=== PATIENT | female | born 1950 | race Caucasian/White ===

== ENCOUNTER 2020-07-10 10:06 | Outpatient (REF) | payer MEDICARE, SELFPAY | END 2020-07-10 10:07 | disposition home or self-care (01) | LOC: HO.LAB 10:06 | PROVIDERS: PCP Internal Medicine; Visit Provider Internal Medicine | DX: Z20.828 Contact with and (suspected) exposure to other viral communicable diseases (principal) | CPT/HCPCS: C9803; U0003 ==

== ENCOUNTER 2021-04-07 17:29 | Emergency (ER) | payer MEDICARE, SELFPAY ==
--- NOTE | ~2021-04-07 | XR_ITS ---
EXAMINATION: XR CHEST CLINICAL INFORMATION: Cough and wheezing COMPARISON: None TECHNIQUE: 2 views of the chest were obtained. FINDINGS: No significant abnormality is noted involving the heart, lungs, mediastinum, bony thorax or soft tissues. Surgical clips noted in the gallbladder fossa. XR/XR chest 2V IMPRESSION: Unremarkable examination.
[2021-04-07 19:48] VITALS: BP 150/78; PULSE 87; RESP 18; TEMP 36.9; O2SAT 95; BMI 31.6
--- NOTE | 2021-04-07 20:39 | ED_ITS ---
HPI - URI/Sore Throat General Chief Complaint: Upper Respiratory Symptoms Stated Complaint: flu like Time Seen by Provider: 04/07/21 20:39 Source: patient Mode of arrival: ambulatory Limitations: no limitations History of Present Illness HPI Narrative: 70-year-old female with a past medical history of COVID in June of 2020. Patient reports similar symptoms month ago with cough. Today patient denies any SOB, CP, PND, palpitations. Reports that she had those symptoms for the last week. Patient reports that those symptoms are worse at night when she lays down. Denies any rhinitis or postnasal drip. Denies any allergies. Denies any fever or chills. Patient denies any other symptoms Related Data Previous Rx's Medication Instructions Recorded benzonatate 100 mg capsule 100 mg PO TID PRN #30 cap 04/07/21 (Tessalon Miriam) fluticasone propionate 50 1 spray INTRANASAL BID #16 g 04/07/21 mcg/actuation nasal spray,suspension (Flonase Allergy Relief) prednisone 20 mg tablet 60 mg PO DAILY 5 Days #15 tab 04/07/21 Allergies Allergy/AdvReac Type Severity Reaction Status Date / Time codeine Allergy Unknown Verified 04/07/21 19:50 Review of Systems Review of Systems: Constitutional : No Weight loss, No Fever, No Chills, No Night Sweats, No Fatigue, No Malaise ENT/Mouth : No Hearing loss, No Ear Pain, No Nasal Congestion, No Sinus Pain, No Hoarseness, No sore throat, No Rhinorrhea, No Swallowing Difficulty Eyes: No Eye Pain, No Swelling, No Redness, No Foreign Body, No Discharge, No Vision Changes Cardiovascular : No Chest Pain, No SOB, No Dyspnea on Exertion, No Orthopnea, No Edema, No Palpitations Respiratory : Cough, No Sputum, No Wheezing, No Smoke Exposure, No Dyspnea Gastrointestinal : No Nausea, No Vomiting, No Diarrhea, No Constipation, No abdominal Pain, No Hematochezia, No Melena Genitourinary : no irregular bleeding, No Dysuria, No Urinary Frequency, No Hematuria, No Urinary Incontinence, No Urgency, No Flank Pain, No Urinary Flow Changes, No Hesitancy Musculoskeletal : No joint pain, No Myalgias, No Joint Swelling Skin : No Skin Lesions, No rash Neuro : No Weakness, No Numbness, No Paresthesias, No Loss of Consciousness, No Dizziness, No Headache Psych : No Anxiety/Panic, No Depression, No SI/HI/AH/VH, No Social Issues, Heme/Lymph: No Bruising, No Bleeding,No Lymphadenopathy Endocrine : No Polyuria, No Polydipsia, No Temperature Intolerance Yes all oth er systems are reviewed and are negative PMFSH Social History Social History Advance Directives: No Physical Exam Vital Signs: Vital Signs: Last Vital Signs Temp 98.4 F 04/07/21 19:48 Pulse 87 04/07/21 19:48 Resp 18 04/07/21 19:48 BP 150/78 H 04/07/21 19:48 Pulse Ox 95 04/07/21 19:48 Body Mass Index 31.6 Const: General: healthy appearing, no acute distress and well developed Nutritional Appearance: well nourished Orientation/consciousness: patient oriented x3 Neck: Neck: Yes normal visual inspection, Yes full ROM and Yes trachea midline Thyroid: Thyroid normal Resp: Effort & Inspection: normal respiratory effort and able to speak in complete sentences Auscultation: clear to auscultation bilaterally Cardio: Rate: regular rate Rhythm: regular rhythm GI: Inspection: Yes normal to inspection and No distended Palpation (GI): No hepatosplenomegaly present Auscultation: normal bowel sounds Skin: General skin exam: elasticity normal, turgor normal and dry skin Neuro: General: patient oriented x3 Course Course Course Narrative: 70-year-old female is here today for cough the last few days. Patient reports that she had similar symptoms 1 month ago in her symptoms went away. Patient reports that she had COVID in June 2020, reports that she had been vaccinated since. Patient denies any rhinitis ear pain, SOB with or without exertion, palpitations, CP, PND. Will give her prednisone and Tessalon Perles, will do COVID test. Reevaluation(s) Reevaluation #1: Patient negative for COVID, SARS, flu, RSV. Will send her home on prednisone and Tessalon Perles. I will also send her home with Flonase. She can take it twice a day. Patient was instructed to go to see her PCP in 2-3 days. She was also instructed to return to emergency department if her symptoms will get worse or if she will experience any additional concerning symptoms. MDM - URI/Sore Throat Differential Diagnosis Differential diagnosis: Likely upper respiratory infection, viral infection and bronchitis Lab Data Labs: Lab Results 04/07/21 Range/Units 21:03 Coronavirus (PCR) NEGATIVE (Negative) Influenza Type A (PCR) NEGATIVE (Negative) Influenza Type B (PCR) NEGATIVE (Negative) RSV RNA Qual (PCR) NEGATIVE (Negative) Imaging Data Chest x-ray: Radiologist's impression: FINDINGS: No significant abnormality is noted involving the heart, lungs, mediastinum, bony thorax or soft tissues. Surgical clips noted in the gallbladder fossa. Discharge Plan Discharge Clinical Impression: Upper respiratory infection Patient Disposition: Home, Self-Care Instructions: Upper Respiratory Infection (ED), Viral Syndrome (ED) Additional Instructions: You were seen here today for upper respiratory infection. Your COVID 19 test is still pending and we will call you when it is back and is positive. You were given prednisone so please take that for the next 5 days. You were given cough medication as well. Please follow-up with your primary care doctor in 2-3 days. He you may return to emergency department if your symptoms will get worse or if you experience any additional concerning symptoms Prescriptions: New benzonatate [Tessalon Perles] 100 mg capsule 100 mg PO TID PRN (Reason: cough) Qty: 30 RF: 0 prednisone 20 mg tablet 60 mg PO DAILY 5 Days Qty: 15 RF: 0 fluticasone propionate [Flonase Allergy Relief] 50 mcg/actuation spray,suspension 1 spray intranasal BID Qty: 16 RF: 0 Referrals: Macario Jansen PA [Primary Care Provider] - 2 days Interventions: ED Discharge Assessment Last Done: 04/07/21 22:19 Discharge Date/Time: 04/07/21 22:20
[2021-04-07] MEDS: predniSONE 20 MG TABLET 60 MG PO (21:00)
[2021-04-07 21:48] LABS: Influenza A PCR NEGATIVE (Negative); Influenza B PCR NEGATIVE (Negative); Resp Syncy Virus RNA Qual PCR NEGATIVE (Negative); SARS COV2 PCR INHOUSE NEGATIVE (Negative)
[2021-04-07] MEDS: Benzonatate 100 MG CAPSULE PO (22:04)
== END 2021-04-07 22:20 | disposition home or self-care (01) ==
PROVIDERS: Nurse Practitioner Family; Emergency Provider Emergency Medicine Emergency Medical Services; PCP Physician Assistant Medical
DX: J06.9 Acute upper respiratory infection, unspecified (principal); Z20.822 Contact with and (suspected) exposure to COVID-19
CPT/HCPCS: 0241U; 36415; 71046; 99283

== ENCOUNTER 2021-04-17 14:42 | Emergency (ER) | payer MEDICARE, SELFPAY ==
--- NOTE | ~2021-04-17 | XR_ITS ---
EXAMINATION: XR CHEST CLINICAL INFORMATION: Cough for one month COMPARISON: April 07, 2021 TECHNIQUE: AP portable view of the chest was obtained. FINDINGS: There is no evidence of acute parenchymal disease, pneumothorax, or pleural effusion. Heart normal size. No evidence of pulmonary edema. There is a small retrocardiac density present consistent with hiatal hernia. There is a region of scarring noted about the right apex. XR/XR chest 1V IMPRESSION: No acute disease.
[2021-04-17 15:26] VITALS: BP 158/60; PULSE 79; RESP 16; TEMP 36.3; O2SAT 99; BMI 31.7
--- NOTE | 2021-04-17 16:00 | ECG_ITS ---
Test Reason : DYSPNEA Blood Pressure : / mmHG Vent. Rate : 070 BPM Atrial Rate : 070 BPM P-R Int : 146 ms QRS Dur : 076 ms QT Int : 394 ms P-R-T Axes : 000 030 043 degrees QTc Int : 425 ms Normal sinus rhythm Normal ECG No previous ECGs available Referred By: Hansel Crespo Electronically Signed By:DONNA BARTHOLOMEW
--- NOTE | 2021-04-17 16:23 | ED.GENADULT ---
HPI - General Adult General Chief complaint: Dyspnea Stated complaint: cough Time Seen by Provider: 04/17/21 15:05 Source: patient Mode of arrival: ambulatory Limitations: no limitations History of Present Illness HPI narrative: Patient presents to ED for chronic cough for 1 month. Patient denies any chest pain or shortness of breath. Patient states no swelling of lower extremities, shortness of breath on exertion, calf pain, pleuritic chest plain, headache, recent surgery, recent travel, pmh of blood clots, or dizziness. Patient denies any history of diabetes hypertension. Patient denies any hypertensive medication. Patient denies any swelling of lip or sensation of throat closing. Patient denies any itchy rash. Patient states past medical history of COVID. Related Data Previous Rx's Medication Instructions Recorded benzonatate 100 mg capsule 100 mg PO TID PRN #30 cap 04/07/21 (Tessalon Perles) fluticasone propionate 50 1 spray INTRANASAL BID #16 g 04/07/21 mcg/actuation nasal spray,suspension (Flonase Allergy Relief) prednisone 20 mg tablet 60 mg PO DAILY 5 Days #15 tab 04/07/21 codeine 10 mg-guaifenesin 100 mg/5 5 ml PO Q6H PRN 3 Days #60 ml 04/17/21 mL oral liquid (Guaifenesin AC) Allergies Allergy/AdvReac Type Severity Reaction Status Date / Time codeine Allergy Unknown Verified 04/07/21 19:50 Review of Systems Constitutional: Constitutional: Reports as per HPI and Reports no additional constitutional complaints Eyes: Eyes: Reports as per HPI and Reports no additional eye complaints ENT: Reports system reviewed and no additional complaints, except as documented and Reports as per HPI Cardiovascular: Cardiovascular: Reports as per HPI and Reports no additional cardiovascular complaints Respiratory: Respiratory: Reports as per HPI, Reports no additional respiratory complaints and Reports cough Gastrointestinal: Gastrointestinal: Reports as per HPI and Reports no additional gastrointestinal complaints Genitourinary: Genitourinary: Reports no additional female genitourinary complaints and Reports as per HPI Musculoskeletal: Musculoskeletal: Reports no additional musculoskeletal complaints and Reports as per HPI Neurologic: Reports system reviewed and no additional complaints, except as documented and Reports as per HPI Psychiatric: Psychiatric: Reports no additional psychiatric complaints and Reports as per HPI [facility] Social History Social History Advance Directives: Yes Advance Directives Information Provided: No Advance Directives on File: No Physical Exam Vital Signs: Vital Signs: Last Vital Signs Temp 98.1 F 04/17/21 19:33 Pulse 69 04/17/21 19:33 Resp 16 04/17/21 19:33 BP 151/70 H 04/17/21 19:33 Pulse Ox 97 04/17/21 19:33 Body Mass Index 31.7 Const: General: cooperative and healthy appearing Orientation/consciousness: patient oriented x3 HENMT: Head: Yes normal to inspection, Yes No palpable skull fracture present, Yes normocephalic and Yes atraumatic Eyes: General: appearance normal, both eyes and all related structures Neck: Neck: Yes normal visual inspection, Yes full ROM, Yes no lymphadenopathy, Yes no meningeal signs, Yes trachea midline, Yes supple and No tender Chest: Chest palpation & inspection: normal inspection of the chest and normal palpation of entire chest wall Resp: Effort & Inspection: normal respiratory effort and able to speak in complete sentences Auscultation: clear to auscultation bilaterally Cardio: Jugular venous distension: no JVD Heart sounds: S1 normal heart sound present and S2 normal heart sound present GI: Inspection: Yes normal to inspection and No abdominal wall ecchymosis Palpation (GI): Soft to palpation, not firm, nontender, no guarding and not rigid : General: No CVA tenderness and Yes no CVA tenderness Back/Spine/Pelvis: Back: no CVA tenderness, No CVA tenderness and No back tenderness Skin: General skin exam: no rashes or lesions noted and elasticity normal Neuro: General: patient oriented x3, gait normal, no meningeal signs and CN's II-XI intact bilaterally Cranial nerves: Yes CN's II-XII intact bilaterally Extrem: Other: Lower extremities negative for swelling, pitting edema, calf tenderness General: Yes normal to inspection and Yes full ROM Psych: Appearance: grossly normal, well kempt and not disheveled Course Course Course Narrative: History physical exam and is more URI chronic cough but due to age and chronicity cough to make sure there is no cardiac issues such as CA or BNP. If negative will refer to pathology lab technician for chronic cough and probably be due to moan lasting effect from COVID. Reevaluation(s) Reevaluation #1: Patient's 2 troponins were negative. EKG negative STEMI. BNP negative. Patient's COVID swab negative. Patient owns be negative. Patient will be referred to pathology lab technician for chronic cough. Time: 19:38 Medical Decision Making MDM Narrative Medical decision making narrative: Chronic cough Lab Data Result diagrams: 04/17/21 16:23 04/17/21 16:23 Labs: Lab Results 04/17/21 04/17/21 04/17/21 Range/Units 16:23 16:23 16:23 WBC 15.9 H (4.8-10.8) X10*3/uL RBC 4.30 (4.20-5.50) X10*6/uL Hgb 12.6 (12.0-16.0) g/dl Hct 39.1 (37-47) % MCV 90.9 (80-98) fL MCH 29.3 (27.0-33.0) pg MCHC 32.2 (31.0-35.0) g/dl RDW 13.2 (11.0-16.0) % Plt Count 314 (160-400) X10*3/uL MPV 10.2 (9.4-12.3) fL Immature Gran % (Auto) 0.5 H (0.0-0.4) % Neut % (Auto) 70.5 (45-73) % Lymph % (Auto) 18.3 L (20-40) % [place] % (Auto) 6.8 (2-11) % Eos % (Auto) 3.6 (0-4) % Baso % (Auto) 0.3 (0-2) % Lymph # (Auto) 2.9 (1.2-4.9) X10*3/uL [place] # (Auto) 1.1 (0.1-1.2) X10*3/uL Eos # (Auto) 0.6 H (0.0-0.4) X10*3/uL Baso # (Auto) 0.1 (0.0-0.2) X10*3/uL Abs Immat Gran (auto) 0.08 H (0.00-0.03) X10*3/uL Absolute Neuts (auto) 11.2 H (2.0-8.3) X10*3/uL Absolute Nucleated RBC 0.000 (0.0-0.012) X10*3/uL Nucleated RBC % (auto) 0.0 (0.0-0.2) /100WBC Sodium 142 (135-145) mmol/L Potassium 4.5 (3.3-5.1) mmol/L Chloride 108 (96-108) mmol/L Carbon Dioxide 26 (22-29) mmol/L Anion Gap 13 (12-20) BUN 19 H (9-16) mg/dL Creatinine 0.94 (0.5-1.4) mg/dL Estim Creat Clear Calc 45.1 Estimated GFR 59 Random Glucose 102 (60-115) mg/dL Calcium 9.9 (8.4-10.2) mg/dL Total Bilirubin 0.5 (0.0-1.0) mg/dL AST 19 (5-31) U/L ALT 37 H (0-31) U/L Alkaline Phosphatase 76 (39-117) U/L Troponin I High Sens 6.7 (<3.5-17.0) ng/L B-Natriuretic Peptide 25 (<100) pg/mL Total Protein 6.6 (6.5-8.0) g/dL Albumin 4.5 (3.5-5.0) g/dL Coronavirus (PCR) (Negative) Influenza Type A (PCR) (Negative) Influenza Type B (PCR) (Negative) RSV RNA Qual (PCR) (Negative) 04/17/21 04/17/21 Range/Units 16:51 18:16 WBC (4.8-10.8) X10*3/uL RBC (4.20-5.50) X10*6/uL Hgb (12.0-16.0) g/dl Hct (37-47) % MCV (80-98) fL MCH (27.0-33.0) pg MCHC (31.0-35.0) g/dl RDW (11.0-16.0) % Plt Count (160-400) X10*3/uL MPV (9.4-12.3) fL Immature Gran % (Auto) (0.0-0.4) % Neut % (Auto) (45-73) % Lymph % (Auto) (20-40) % [place] % (Auto) (2-11) % Eos % (Auto) (0-4) % Baso % (Auto) (0-2) % Lymph # (Auto) (1.2-4.9) X10*3/uL [place] # (Auto) (0.1-1.2) X10*3/uL Eos # (Auto) (0.0-0.4) X10*3/uL Baso # (Auto) (0.0-0.2) X10*3/uL Abs Immat Gran (auto) (0.00-0.03) X10*3/uL Absolute Neuts (auto) (2.0-8.3) X10*3/uL Absolute Nucleated RBC (0.0-0.012) X10*3/uL Nucleated RBC % (auto) (0.0-0.2) /100WBC Sodium (135-145) mmol/L Potassium (3.3-5.1) mmol/L Chloride (96-108) mmol/L Carbon Dioxide (22-29) mmol/L Anion Gap (12-20) BUN (9-16) mg/dL Creatinine (0.5-1.4) mg/dL Estim Creat Clear Calc Estimated GFR Random Glucose (60-115) mg/dL Calcium (8.4-10.2) mg/dL Total Bilirubin (0.0-1.0) mg/dL AST (5-31) U/L ALT (0-31) U/L Alkaline Phosphatase (39-117) U/L Troponin I High Sens 7.7 (<3.5-17.0) ng/L B-Natriuretic Peptide (<100) pg/mL Total Protein (6.5-8.0) g/dL Albumin (3.5-5.0) g/dL Coronavirus (PCR) NEGATIVE (Negative) Influenza Type A (PCR) NEGATIVE (Negative) Influenza Type B (PCR) NEGATIVE (Negative) RSV RNA Qual (PCR) NEGATIVE (Negative) ECG Data Interpretation: Normal sinus rhythm. Normal EKG ventricular rate 70. Pr interval 146. QRS 76 QTC 425. Negative STEMI Discharge Plan Discharge Clinical Impression: Chronic cough Patient Disposition: Home, Self-Care Instructions: Chronic Cough (ED) Additional Instructions: You will be discharged with Hycodan which is a cough medication with narcotic. Use as needed only. Side-effect of medication is drowsiness. Do not take at work or while driving. follow-up with referred pathology lab technician for chronic cough. Your blood work and chest x-ray came back negative for heart attack or heart failure. Chest x-ray negative for pneumonia. COVID swab came back negative. Return to the ED for worsening chest pain, shortness of breath, weakness, dizziness, leg swelling, calf pain, intractable fever, chills, or any other concerning symptoms. Prescriptions: New codeine-guaifenesin [Guaifenesin AC] 10-100 mg/5 mL liquid 5 ml PO Q6H PRN (Reason: coughing) 3 Days Qty: 60 RF: 0 No Action benzonatate [Tessalon Perles] 100 mg capsule 100 mg PO TID PRN (Reason: cough) Qty: 30 RF: 0 prednisone 20 mg tablet 60 mg PO DAILY 5 Days Qty: 15 RF: 0 fluticasone propionate [Flonase Allergy Relief] 50 mcg/actuation spray,suspension 1 spray intranasal BID Qty: 16 RF: 0 Referrals: Joey Gomez MD [Physician] - 2 days (Chronic cough for one month) Interventions: ED Discharge Assessment Last Done: 04/17/21 20:34 Discharge Date/Time: 04/17/21 20:35 Print Language: Sami
[2021-04-17 16:32] LABS: MANUAL DIFF FLAG NO
[2021-04-17 16:34] LABS: Basophils Absolute Auto 0.1 X10*3/uL (0.0-0.2); Basophils Percent Auto 0.3 % (0-2); Eosinophils Absolute Auto 0.6 X10*3/uL (0.0-0.4); Eosinophils Percent Auto 3.6 % (0-4); Hematocrit 39.1 % (37-47); Hemoglobin 12.6 g/dl (12.0-16.0); Imm Gran Abs Auto 0.08 X10*3/uL (0.00-0.03); Imm Gran Pct Auto 0.5 % (0.0-0.4); Lymphocytes Absolute Auto 2.9 X10*3/uL (1.2-4.9); Lymphocytes Percent Auto 18.3 % (20-40); Mean Corpuscular HGB Conc 32.2 g/dl (31.0-35.0); Mean Corpuscular Hemoglobin 29.3 pg (27.0-33.0); Mean Corpuscular Volume 90.9 fL (80-98); Mean Platelet Volume 10.2 fL (9.4-12.3); Monocytes Absolute Auto 1.1 X10*3/uL (0.1-1.2); Monocytes Percent Auto 6.8 % (2-11); Neutrophils Absolute Auto 11.2 X10*3/uL (2.0-8.3); Neutrophils Percent Auto 70.5 % (45-73); Platelet Count 314 X10*3/uL (160-400); Red Cell Distribution Width 13.2 % (11.0-16.0); White Blood Count 15.9 X10*3/uL (4.8-10.8)
[2021-04-17 16:53] LABS: Alanine Aminotransferase 37 U/L (0-31); Albumin Level 4.5 g/dL (3.5-5.0); Alkaline Phosphatase 76 U/L (39-117); Anion Gap 13 (12-20); Aspartate Amino Transferase 19 U/L (5-31); Bilirubin Total 0.5 mg/dL (0.0-1.0); Blood Urea Nitrogen 19 mg/dL (9-16); Calcium 9.9 mg/dL (8.4-10.2); Carbon Dioxide 26 mmol/L (22-29); Chloride 108 mmol/L (96-108); Creatinine Clr Calc Pharmacy 45.1; Estimated Glomerular Filt Rate 59; Glucose Random 102 mg/dL (60-115); Potassium 4.5 mmol/L (3.3-5.1); Sodium 142 mmol/L (135-145); Total Protein 6.6 g/dL (6.5-8.0)
[2021-04-17 16:58] LABS: B Type Natriuretic Peptide 25 pg/mL (<100); Troponin-I High Sensitivity 6.7 ng/L (<3.5-17.0)
[2021-04-17 17:28] LABS: Adenovirus PCR Not Detected (Not Detect.); Bordetella parapertussis PCR Not Detected (Not Detect.); Bordetella pertussis PCR Not Detected (Not Detect.); Chlamydia pneumoniae PCR Not Detected (Not Detect.); Coronavirus 229E PCR Not Detected (Not Detect.); Coronavirus HKU1 PCR Not Detected (Not Detect.); Coronavirus NL63 PCR Not Detected (Not Detect.); Coronavirus OC43 PCR Not Detected (Not Detect.); Human metapneumovirus PCR Not Detected (Not Detect.); Influenza A PCR Not Detected (Not Detect.); Influenza B PCR Not Detected (Not Detect.); Mycoplasma pneumoniae PCR Not Detected (Not Detect.); Parainfluenza 1 PCR Not Detected (Not Detect.); Parainfluenza 2 PCR Not Detected (Not Detect.); Parainfluenza 3 PCR Not Detected (Not Detect.); Parainfluenza 4 PCR Not Detected (Not Detect.); RSV PCR Not Detected (Not Detect.); Rhino/Enterovirus PCR Not Detected (Not Detect.); SARS-CoV-2 PCR Not Detected (Not Detect.)
[2021-04-17 17:36] LABS: Influenza A PCR NEGATIVE (Negative); Influenza B PCR NEGATIVE (Negative); Resp Syncy Virus RNA Qual PCR NEGATIVE (Negative); SARS COV2 PCR INHOUSE NEGATIVE (Negative)
[2021-04-17 18:42] LABS: Troponin-I High Sensitivity 7.7 ng/L (<3.5-17.0)
[2021-04-17] MEDS: guaiFEN/Codeine SF 200/20/10ML 10 ML LIQUID PO (19:10)
[2021-04-17 19:33] VITALS: BP 151/70; PULSE 69; RESP 16; TEMP 36.7; O2SAT 97
== END 2021-04-17 20:35 | disposition home or self-care (01) ==
PROVIDERS: Emergency Medicine; Physician Assistant; Emergency Provider Emergency Medicine Emergency Medical Services; PCP Physician Assistant Medical
DX: R05 Cough (principal); Z79.899 Other long term (current) drug therapy; Z20.822 Contact with and (suspected) exposure to COVID-19
CPT/HCPCS: 0241U; 36415; 71045; 80053; 83880; 84484; 85025; 87633; 93005; 99283

== ENCOUNTER 2021-05-23 09:58 | Outpatient (REF) | payer MEDICARE, SELFPAY ==
[2021-05-23 11:18] LABS: MANUAL DIFF FLAG NO
[2021-05-23 11:51] LABS: Basophils Absolute Auto 0.1 X10*3/uL (0.0-0.2); Eosinophils Absolute Auto 0.4 X10*3/uL (0.0-0.4); Eosinophils Percent Auto 4.9 % (0-4); Hematocrit 39.2 % (37-47); Hemoglobin 12.4 g/dl (12.0-16.0); Imm Gran Abs Auto 0.03 X10*3/uL (0.00-0.03); Imm Gran Pct Auto 0.4 % (0.0-0.4); Lymphocytes Absolute Auto 2.5 X10*3/uL (1.2-4.9); Lymphocytes Percent Auto 30.4 % (20-40); Mean Corpuscular HGB Conc 31.6 g/dl (31.0-35.0); Mean Corpuscular Hemoglobin 29.3 pg (27.0-33.0); Mean Corpuscular Volume 92.7 fL (80-98); Mean Platelet Volume 10.8 fL (9.4-12.3); Monocytes Absolute Auto 0.8 X10*3/uL (0.1-1.2); Monocytes Percent Auto 9.1 % (2-11); Neutrophils Absolute Auto 4.5 X10*3/uL (2.0-8.3); Neutrophils Percent Auto 54.2 % (45-73); Platelet Count 358 X10*3/uL (160-400); Red Blood Count 4.23 X10*6/uL (4.20-5.50); Red Cell Distribution Width 13.8 % (11.0-16.0); White Blood Count 8.3 X10*3/uL (4.8-10.8)
[2021-05-23 12:23] LABS: Anion Gap 18 (12-20); Blood Urea Nitrogen 18 mg/dL (9-16); Carbon Dioxide 21 mmol/L (22-29); Chloride 105 mmol/L (96-108); Estimated Glomerular Filt Rate > 60; Glucose Random 98 mg/dL (60-115); Potassium 4.5 mmol/L (3.3-5.1); Sodium 139 mmol/L (135-145)
[2021-05-23 12:51] LABS: Erythrocyte Sedimentation Rate 16 MM/HR (0-20)
[2021-05-24 13:26] LABS: Anti Nuclear Antibody Screen NEGATIVE (NEGATIVE)
[2021-05-24 13:40] LABS: IgA 166 mg/dL (70-320); IgG 543 mg/dL (600-1540); IgM 54 mg/dL (50-300)
[2021-05-24 19:16] LABS: Immunoglobulin G Subclass 1 274 mg/dL (382-929); Immunoglobulin G Subclass 2 180 mg/dL (241-700); Immunoglobulin G Subclass 3 43 mg/dL (22-178); Immunoglobulin G Subclass 4 11.4 mg/dL (4-86); Immunoglobulin G Total 517 mg/dL (600-1540)
== END 2021-05-23 09:59 | disposition home or self-care (01) ==
LOC: HO.LAB 09:58
PROVIDERS: PCP Physician Assistant Medical; Visit Provider Hospitalist
DX: J45.40 Moderate persistent asthma, uncomplicated (principal); J40 Bronchitis, not specified as acute or chronic; K44.9 Diaphragmatic hernia without obstruction or gangrene
CPT/HCPCS: 36415; 80048; 82784; 82785; 85025; 85652; 86003; 86038; 86039; 99202

== ENCOUNTER 2021-05-24 10:57 | Outpatient (REF) | payer MEDICARE, SELFPAY | END 2021-05-24 10:58 | disposition home or self-care (01) | LOC: HO.LNP 10:57 | PROVIDERS: Visit Provider Hospitalist | DX: J45.909 Unspecified asthma, uncomplicated (principal) | CPT/HCPCS: 87070; 87205 ==

== ENCOUNTER 2021-06-04 13:54 | Outpatient (REF) | payer MEDICARE, SELFPAY ==
--- NOTE | 2021-06-04 17:46 | PFT_ITS ---
INDICATIONS: Dyspnea. SPIROMETRY: FEV1 to FVC of 80% with an FEV1 of 2.09 L which is 119% predicted, FVC of 2.6 L, which is 111% predicted. No significant response to bronchodilators noted. Maximum voluntary ventilation 108% predicted. LUNG VOLUMES: Total lung capacity 170% predicted with residual volume 127% predicted. DIFFUSION CAPACITY: DLCO 88% predicted. INTERPRETATION: No obstructive nor restrictive ventilatory defects identified. No significant response to bronchodilators noted. Normal lung volumes except for significant air trapping and mild diffusion impairment. If asthma is in the differential, methacholine challenge may be helpful in assessing for hyperreactive airways, otherwise clinical correlation warranted. Joey Gomez MD MR/MODL / [id number]
== END 2021-06-04 13:55 | disposition home or self-care (01) ==
LOC: HO.RESP 13:54
PROVIDERS: PCP Physician Assistant Medical; Visit Provider Hospitalist
DX: J45.909 Unspecified asthma, uncomplicated (principal)
CPT/HCPCS: 94060; 94727; 94729

== ENCOUNTER → 2021-06-25 13:49 | Outpatient (BNVA) | payer MEDICARE, SELFPAY | PROVIDERS: PCP Physician Assistant Medical; Visit Provider Hospitalist | DX: J45.40 Moderate persistent asthma, uncomplicated (principal); J40 Bronchitis, not specified as acute or chronic; K44.9 Diaphragmatic hernia without obstruction or gangrene; D80.1 Nonfamilial hypogammaglobulinemia | CPT/HCPCS: 99212 ==

== ENCOUNTER 2021-08-09 08:58 | Outpatient (REF) | payer MEDICARE, SELFPAY ==
--- NOTE | ~2021-08-09 | FL_ITS ---
EXAMINATION: FL BARIUM SWALLOW CLINICAL INFORMATION: Lower chest pain. Abdominal pain. Gastroesophageal reflux disease without esophagitis. COMPARISON: None TECHNIQUE: Barium swallow examination was performed using fluoroscopic evaluation in addition to multiple fluoroscopic spot views. The patient was imaged both upright and prone and using both thick and thin sulfate along with effervescent granules. Fluoroscopy time: 3.3 minutes DAP: 9.795 Gycm2 Images: 74 FINDINGS: Following oral administration of thick barium and effervescent granules, there is normal propagation of the bolus from the oral cavity through the pharynx, esophagus and into the stomach without any evidence of obstruction, narrowing or stricture. On administration of a barium tablet, there is partial hold up at the GE junction secondary to a small incarcerated hiatal hernia. A slightly prominent cricoesophageal splinter is noted. On oral administration of barium-coated turkey, there is normal propagation of the bolus from the oral cavity through the pharynx, esophagus and into the stomach. There is slight decreased peristalsis resulting in stasis of solid food in the mid and distal esophagus. On placing the patient supine and prone lying, except for the small incarcerated hiatal hernia, the rest of the stomach, duodenal bulb course, caliber and peristalsis is normal. The mucosal pattern of the esophagus, stomach and the duodenum is normal. Incidental finding of cholecystectomy. FL/FL barium swallow IMPRESSION: Prominent cricoesophageal sphincter but no obstruction seen. Decreased esophageal peristalsis with slight stasis of solid food in the mid and the distal esophagus. Incarcerated small hiatal hernia resulting in transient hold up of a barium tablet at the GE junction. The tablet cleared following ingestion of a glass of water.
== END 2021-08-09 08:59 | disposition home or self-care (01) ==
LOC: HO.XRAY 08:58
PROVIDERS: Visit Provider Hospitalist
DX: K21.9 Gastro-esophageal reflux disease without esophagitis (principal)
CPT/HCPCS: 74220

== ENCOUNTER 2021-09-19 13:52 | Outpatient (REF) | payer MEDICARE, SELFPAY ==
[2021-09-19 14:11] LABS: MANUAL DIFF FLAG NO
[2021-09-19 14:58] LABS: Basophils Absolute Auto 0.1 X10*3/uL (0.0-0.2); Basophils Percent Auto 0.8 % (0-2); Eosinophils Absolute Auto 0.5 X10*3/uL (0.0-0.4); Eosinophils Percent Auto 6.7 % (0-4); Hematocrit 38.1 % (37.0-47.0); Imm Gran Abs Auto 0.01 X10*3/uL (0.00-0.03); Imm Gran Pct Auto 0.1 % (0.0-0.4); Lymphocytes Absolute Auto 2.7 X10*3/uL (1.2-4.9); Lymphocytes Percent Auto 34.7 % (20-40); Mean Corpuscular HGB Conc 31.5 g/dl (31.0-35.0); Mean Corpuscular Hemoglobin 28.8 pg (27.0-33.0); Mean Corpuscular Volume 91.6 fL (80.0-98.0); Mean Platelet Volume 10.7 fL (9.4-12.3); Monocytes Absolute Auto 0.6 X10*3/uL (0.1-1.2); Monocytes Percent Auto 7.5 % (2-11); Neutrophils Absolute Auto 3.9 x10*3/uL (2.0-8.3); Neutrophils Percent Auto 50.2 % (45-73); Platelet Count 301 X10*3/uL (160-400); Red Blood Count 4.16 X10*6/uL (4.20-5.50); Red Cell Distribution Width 13.4 % (11.0-16.0); White Blood Count 7.8 X10*3/uL (4.8-10.8)
[2021-09-19 15:39] LABS: Erythrocyte Sedimentation Rate 7 MM/HR (0-20)
[2021-09-20 22:27] LABS: Immunoglobulin G Subclass 1 317 mg/dL (382-929); Immunoglobulin G Subclass 2 193 mg/dL (241-700); Immunoglobulin G Subclass 3 46 mg/dL (22-178); Immunoglobulin G Subclass 4 11.6 mg/dL (4-86); Immunoglobulin G Total 563 mg/dL (600-1540)
== END 2021-09-19 13:53 | disposition home or self-care (01) ==
LOC: HO.LAB 13:52
PROVIDERS: Visit Provider Hospitalist
DX: J45.909 Unspecified asthma, uncomplicated (principal)
CPT/HCPCS: 36415; 82784; 85025; 85652

== ENCOUNTER → 2021-09-24 11:02 | Outpatient (BNVA) | payer MEDICARE, SELFPAY | PROVIDERS: PCP Physician Assistant Medical; Visit Provider Hospitalist | DX: J45.40 Moderate persistent asthma, uncomplicated (principal); J40 Bronchitis, not specified as acute or chronic; D80.1 Nonfamilial hypogammaglobulinemia; K44.9 Diaphragmatic hernia without obstruction or gangrene | CPT/HCPCS: 99212 ==

== ENCOUNTER → 2021-12-10 09:53 | Outpatient (BNVA) | payer MEDICARE, SELFPAY | PROVIDERS: PCP Physician Assistant Medical; Referring Provider Dietitian, Registered; Visit Provider Internal Medicine Gastroenterology | DX: K44.9 Diaphragmatic hernia without obstruction or gangrene (principal); J45.40 Moderate persistent asthma, uncomplicated | CPT/HCPCS: 99202 ==

== ENCOUNTER → 2021-12-21 10:25 | Outpatient (BNVA) | payer MEDICARE, SELFPAY | PROVIDERS: PCP Physician Assistant Medical; Visit Provider Surgery | DX: K44.0 Diaphragmatic hernia with obstruction, without gangrene (principal) | CPT/HCPCS: 99202 ==

== ENCOUNTER 2022-03-27 09:00 | Day surgery (SDC) | payer MEDICARE, SELFPAY ==
--- NOTE | 2022-03-26 11:56 | P.CONAN_ITS ---
Documented by User: Susan Emmanuel NP 03/26/22 11:57 HPI - Anesthesia Eval Consult details Narrative: 71yo F for Upper Endoscopy PMF Active Problems Active Problems: All Active Problems (Updated 12/21/21 @ 11:52 by Candi Godinez PA-C) Diaphragmatic hernia with obstruction, without gangrene (Acute) GERD (gastroesophageal reflux disease) (Acute) Asthma (Acute) Bronchitis (Acute) Hypogammaglobulinemia (Acute) Past Medical History Medical History (Updated 12/21/21 @ 11:52 by Candi Godinez PA-C) Asthma Bronchitis Diaphragmatic hernia with obstruction, without gangrene GERD (gastroesophageal reflux disease) History of cervical cancer History of COVID-19 (~06/2020) Hypogammaglobulinemia OCD (obsessive compulsive disorder) Osteopenia Tubular adenoma of colon (~2010) Family History Family History Father Colon cancer Paternal Uncle Colon cancer Sister Colon cancer Family/Other Colon cancer Mother Heart disease HTN (hypertension) Surgical History Surgical History History of appendectomy History of cholecystectomy History of colonoscopy History of esophagogastroduodenoscopy (EGD) History of extraction of renal calculus History of hysterectomy History of removal of laparoscopic gastric banding device Social History Social History Patient Tobacco Use Status: Former Tobacco user Quit Date: 1980 Advance Directives: No Advance Directives Information Provided: Yes Meds Allergies Allergy/AdvReac Type Severity Reaction Status Date / Time Seasonal Allergies Allergy Mild unknown Verified 03/21/22 14:56 Home Medications Medication Instructions Recorded Confirmed Last Taken Type albuterol sulfate 90 mcg/actuation 2 puff inhalation Q4-6H PRN 05/23/21 03/21/22 Unknown History aerosol inhaler Wheezing fluoxetine 40 mg capsule 40 mg PO DAILY 05/23/21 03/21/22 Unknown History tolterodine 2 mg capsule,extended 2 mg PO DAILY 06/25/21 03/21/22 Unknown History release 24 hr vitamin A palmitate 10,000 unit 1 PO DAILY 12/10/21 12/21/21 Unknown History capsule vitamin E 200 unit capsule 200 unit PO DAILY 12/10/21 03/21/22 Unknown History Exam Exam Date and Time: March 26, 2022 1156 Pertinent Lab Results Pertinent Lab Results: Laboratory Tests 09/19/21 14:08 WBC 7.8 Hgb 12.0 Hct 38.1 Plt Count 301 Narrative Narrative: PFT 2020 INTERPRETATION:? No obstructive nor restrictive ventilatory defects identified.? No significant response to bronchodilators noted.? Normal lung volumes except for significant air trapping and mild diffusion impairment.? If asthma is in the differential, methacholine challenge may be helpful in assessing for hyperreactive airways, otherwise clinical correlation warranted. Assessment and Plan Assessment Anesthesia Assessment: Chart Reviewed Documented by User: Melida Trinidad MD 03/27/22 09:31 [facility] Past Medical History Medical History (Updated 12/21/21 @ 11:52 by Candi Godinez PA-C) Asthma Bronchitis Diaphragmatic hernia with obstruction, without gangrene GERD (gastroesophageal reflux disease) History of cervical cancer History of COVID-19 (~06/2020) Hypogammaglobulinemia OCD (obsessive compulsive disorder) Osteopenia Tubular adenoma of colon (~2010) Family History Family History Father Colon cancer Paternal Uncle Colon cancer Sister Colon cancer Family/Other Colon cancer Mother Heart disease HTN (hypertension) Family history of problems with anesthesia: No Surgical History Surgical History History of appendectomy History of cholecystectomy History of colonoscopy History of esophagogastroduodenoscopy (EGD) History of extraction of renal calculus History of hysterectomy History of removal of laparoscopic gastric banding device History of Problems with Anesthesia: No Social History Social History Patient Tobacco Use Status: Former Tobacco user Quit Date: 1980 Advance Directives: No Advance Directives Information Provided: Yes Meds Allergies Allergy/AdvReac Type Severity Reaction Status Date / Time Seasonal Allergies Allergy Mild unknown Verified 03/21/22 14:56 Home Medications Medication Instructions Recorded Confirmed Last Taken Type albuterol sulfate 90 mcg/actuation 2 puff inhalation Q4-6H PRN 05/23/21 03/21/22 Unknown History aerosol inhaler Wheezing fluoxetine 40 mg capsule 40 mg PO DAILY 05/23/21 03/21/22 Unknown History tolterodine 2 mg capsule,extended 2 mg PO DAILY 06/25/21 03/21/22 Unknown History release 24 hr vitamin A palmitate 10,000 unit 1 PO DAILY 12/10/21 12/21/21 Unknown History capsule vitamin E 200 unit capsule 200 unit PO DAILY 12/10/21 03/21/22 Unknown History Exam Airway Mallampati Class: II TM Dist: >3cm Neck ROM: Full Heart: rrr Lungs: cta Assessment and Plan Assessment Anesthesia Assessment: Anesthesia Plan Discussed and Chart Reviewed Final Anesthetic Review Family History of Problems with Anesthesia: No History of Problems with Anesthesia: No NPO: Yes ASA Class: II Final Preanesthetic Review: No Changes in Pt Med Stat, Meds/Allgs Chart Reviewed and Consent Obtained/Reviewed Patient Risk: Intermediate Procedure Risk: Intermediate Anesthetic Plan Anesthetic Plan: MAC: Disposition: Standard PACU
[2022-03-27 09:14] VITALS: PULSE 64; RESP 18; TEMP 36.4; O2SAT 97; BMI 32.5
--- NOTE | 2022-03-27 09:25 | MHC.SHP ---
Pre-Procedural Eval Section A Date of Service: 03/27/22 Section B Chief Complaint: Dysphagia and abnormal barium swallow Details of Present Illness: 71-year-old female with past medical history of asthma, bronchitis, hypogammaglobulinemia, hiatal hernia, who is presenting for upper endoscopy for dysphagia/globus sensation and abnormal barium swallow that showed incarcerated hiatal hernia as well as prominent cricopharyngeus. Plan to proceed with EGD +/- dilation. Allergies: Allergies Allergy/AdvReac Type Severity Reaction Status Date / Time Seasonal Allergies Allergy Mild unknown Verified 03/21/22 14:56 Review of Systems Review of Systems Comment: 10 point ROS negative except as mentioned above. Exam Exam Comment: Gen appear: No acute distress, well nourished HEENT: no icterus, Chest: No overt resp distress Abd: soft, nontender, nondistended Psych: Stable affect, answering questions appropriately Neuro: A/Ox3 noted to move all extremities spontaneously Ext: no peripheral edema Plan Diagnosis/Plan: Unchanged I have reviewed the history and physical and performed a pertinent physical examination on my patient. No changes have occurred unless specified.
[2022-03-27] MEDS: Lactated Ringers 1,000 ML 50 ML IVCONT (09:40)
--- NOTE | 2022-03-27 09:41 | W.PM.OPN ---
Operative Note Operative Note Date of Service: 03/27/22 Narrative: Procedure Date: 03/27/22 Procedure: Esophagogastroduodenoscopy +/- dilation Endoscopist: Harleen Hanley MD Indication: Dysphagia, abnormal barium swallow Anesthesia Provider: Dr Melida Valderrama Anesthesia Type: MAC ?? EGD Procedure:?? The procedure, indications, preparation and potential complications were reviewed with the patient, who indicated understanding and gave written informed consent to proceed. A physical exam was performed. A standard gastroscope was introduced through the mouth, and advanced to the second part of duodenum. The mucosa was carefully examined on slow withdrawal of the endoscope. The patient tolerated the procedure well. There were no immediate complications.? ? EGD Findings:?Esophagus:? Normal mucosa noted in the entire esophagus. Medium sized hiatal hernia spanning 5 cm noted. No resistance was felt to the passage of scope through the UES. ?Stomach:? Normal mucosa was noted in the stomach. ?Duodenum:? Normal mucosa was noted in the whole of the examined duodenum. Additional intervention: A guidewire was left in place in the antrum. Lubricated Savary-Steffen dilator was introduced in a step kaplan fashion from 14 mm to 15 mm. There was significant resistance at noted 15 mm. Reintroduction of scope showed heme at the level of UES. ? EGD Impressions:? UES stricture/stenosis. (dilation) ?Hiatal hernia ?Normal duodenum (biopsy) ?? Recommendations:?Anticipate some improvement from dilation today. Will book an EGD in 6-8 weeks for repeat dilation with goal dilation of at least 18 mm. ?Start/continue PPI therapy. ?Avoid NSAIDs. ?Follow up in GI office as scheduled. ?Above has been reviewed with the patient. Educational hand outs were provided at discharge.
[2022-03-27 10:19] VITALS: BP 121/67; PULSE 69; RESP 16; TEMP 36.8; O2SAT 98
[2022-03-27 10:34] VITALS: BP 124/61; PULSE 56; RESP 16; TEMP 36.7; O2SAT 98
== END 2022-03-27 11:01 | disposition home or self-care (01) ==
PROVIDERS: PCP Physician Assistant Medical; Visit Provider Internal Medicine
PROC: 0DJ08ZZ Inspection of Upper Intestinal Tract, Via Natural or Artificial Opening Endoscopic (ICD-10-PCS; CPT 43235; principal; 2022-03-27 10:30)
DX: R13.10 Dysphagia, unspecified (principal); K22.2 Esophageal obstruction; K21.9 Gastro-esophageal reflux disease without esophagitis; K44.9 Diaphragmatic hernia without obstruction or gangrene; J45.909 Unspecified asthma, uncomplicated; D80.1 Nonfamilial hypogammaglobulinemia; Z79.899 Other long term (current) drug therapy; Z90.49 Acquired absence of other specified parts of digestive tract; Z86.16 Personal history of COVID-19; Z87.442 Personal history of urinary calculi; Z98.84 Bariatric surgery status; Z87.891 Personal history of nicotine dependence
CPT/HCPCS: 43248; C1769

== ENCOUNTER → 2022-04-12 09:20 | Outpatient (BNVA) | payer MEDICARE, SELFPAY | PROVIDERS: PCP Physician Assistant Medical; Visit Provider Surgery | DX: K44.0 Diaphragmatic hernia with obstruction, without gangrene (principal) | CPT/HCPCS: 99212 ==

== ENCOUNTER → 2022-05-20 10:17 | Outpatient (BNVA) | payer MEDICARE, SELFPAY | PROVIDERS: PCP Physician Assistant Medical; Visit Provider Hospitalist | DX: J45.40 Moderate persistent asthma, uncomplicated (principal); K44.9 Diaphragmatic hernia without obstruction or gangrene; K21.9 Gastro-esophageal reflux disease without esophagitis; D80.1 Nonfamilial hypogammaglobulinemia | CPT/HCPCS: 99212 ==

== ENCOUNTER → 2022-10-04 14:51 | Outpatient (BNVA) | payer MEDICARE, SELFPAY | PROVIDERS: PCP Physician Assistant Medical; Visit Provider Hospitalist | DX: J45.40 Moderate persistent asthma, uncomplicated (principal); K44.9 Diaphragmatic hernia without obstruction or gangrene; D80.1 Nonfamilial hypogammaglobulinemia | CPT/HCPCS: 99212 ==

== ENCOUNTER 2022-10-07 14:21 | Outpatient (REF) | payer MEDICARE, SELFPAY ==
[2022-10-07 14:36] LABS: MANUAL DIFF FLAG NO
[2022-10-07 14:52] LABS: Basophils Absolute Auto 0.1 X10*3/uL (0.0-0.2); Basophils Percent Auto 0.5 % (0-2); Eosinophils Absolute Auto 0.4 X10*3/uL (0.0-0.4); Eosinophils Percent Auto 3.8 % (0-4); Hemoglobin 12.1 g/dl (12.0-16.0); Imm Gran Abs Auto 0.04 X10*3/uL (0.00-0.03); Imm Gran Pct Auto 0.4 % (0.0-0.4); Lymphocytes Absolute Auto 3.4 X10*3/uL (1.2-4.9); Mean Corpuscular HGB Conc 31.8 g/dl (31.0-35.0); Mean Corpuscular Hemoglobin 29.3 pg (27.0-33.0); Mean Platelet Volume 10.3 fL (9.4-12.3); Monocytes Absolute Auto 0.8 X10*3/uL (0.1-1.2); Monocytes Percent Auto 8.4 % (2-11); Neutrophils Percent Auto 51.9 % (45-73); Platelet Count 267 X10*3/uL (160-400); Red Blood Count 4.13 X10*6/uL (4.20-5.50); White Blood Count 9.6 X10*3/uL (4.8-10.8)
[2022-10-07 15:32] LABS: Erythrocyte Sedimentation Rate 7 MM/HR (0-20)
[2022-10-09 14:33] LABS: Immunoglobulin G Subclass 1 280 mg/dL (382-929); Immunoglobulin G Subclass 2 176 mg/dL (241-700); Immunoglobulin G Subclass 3 41 mg/dL (22-178); Immunoglobulin G Subclass 4 12.3 mg/dL (4-86); Immunoglobulin G Total 587 mg/dL (600-1540)
== END 2022-10-07 14:22 | disposition home or self-care (01) ==
LOC: HO.LAB 14:21
PROVIDERS: PCP Physician Assistant Medical; Visit Provider Hospitalist
DX: D80.1 Nonfamilial hypogammaglobulinemia (principal); J45.40 Moderate persistent asthma, uncomplicated
CPT/HCPCS: 36415; 82784; 85025; 85652

== ENCOUNTER 2023-04-07 11:12 | Outpatient (AMB) | payer MEDICARE, SELFPAY ==
[2023-04-07 11:24] VITALS: PULSE 67; O2SAT 96; BMI 33.4
--- NOTE | 2023-04-07 11:24 | A.OFFVIS_ITS ---
Intake Vital Signs 04/07/23 11:24 Height 4 ft 10 in Weight 160 lb BMI 33.4 Pulse 67 Pulse Source Pulse Oximeter Pulse Oximetry (%) 96 Oxygen Delivery Method Room Air Intake Visit Reasons: asthma Allergies Seasonal Allergies Allergy (Mild, Verified 04/07/23 11:25) unknown HPI HPI Comments History of Present Illness Details The patient is a 72-year-old woman with a known history of asthma in addition to hiatal hernia. The patient was doing very well until back in June 2020 she developed COVID 19. after that episode she has had having increasing coughing and congestion. the patient did not require hospitalization for her COVID. She recovered home. Subsequent after that he started noticing the shortness of breath and chest tightness. She was started on a short-acting beta agonist. Subsequent to that the patient also was placed on Wixela. This has been partially helpful. However she goes in to significant coughing spells with chest congestion. Sometimes she is able to cough up some mucus plugs. Her cough is moderate severity. It is not affected by the time a day. As far as exposures she denies any exposure to any fumes or toxins. She does not have any pets. Denies any mold exposures. Denied any allergies or asthma or any obstructive airway disease prior to COVID. More recently she was developing worsening shortness of breath and she called the ambulance and she was taken to [facility] where she was admitted back in April 18 Of this year. The patient did have an elevated D-dimer and subsequently had a CT scan of the chest that was personally by me. Demonstrated some degree of mosaic pattern and evidence of bronchitis. In addition to that she did have [id number] hiatal hernia. She was treated with a course of prednisone in addition to continuing with her Wixela and short-acting beta agonist. 06/25/2021 the patient is here for a pulmonary follow-up visit. Since we last spoke care symptoms have improved some. She responded well to the medical therapy. She continues to have a cough however. She also has fullness of the throat. She complains of postnasal drip. She does have a hiatal hernia and we are awaiting her barium swallow. Explained to her that this may be impacting her respiratory issues. We did review her blood work demonstrating a low IgG level concerning for immunodeficiency. Explained to her that this could result in ongoing smoldering infections. We did talk about different options. She is going to try to minimize prophylactic antibiotics. Will plan to repeat the immunoglobulin levels. However he continued to be low not on reasonable for her to consider seeing laborer drying department to further address the question of the etiology for acquired hypogammaglobulinemia. The patient. The inhaler. She did not do well with powdered inhaler as it irritated her throat. Therefore will switch over to a HFA inhaler with spacer to minimize irritation to the throat. She is to continue with the reflux diet. She is still bringing up mucus plugs. I am hoping the Symbicort will help. However, her cultures were not helpful because the sputum was contaminated with saliva. Therefore could not be run. If she continues to have chest congestion we can send additional studies. We can also consider bronchoscopy if we need the cultures. At this point the patient is doing better so will hold off on any semi-invasive procedures. 09/24/2021 the patient is here for pulmonary follow-up visit. Overall she is feeling better. She was taking the Symbicort and then she decided to stop it. After a week or so her symptoms return she went back on it. She stopped it again for the last couple weeks and she has been doing okay. She has been coughing she has been noticing some minimal shortness of breath. She is concerned about taking a medication for too long. 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 Her allergy testing was all negative. She is taking allergy medications at this time. In addition to that she still has difficulty with swallow. Feels like food is getting stuck primarily rice in her proximal esophagus. Sometimes she chokes up. In addition to that she does get reflux symptoms. 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 The patient needs to have this followed up with gastroenterology. Will making arrangements for her to see gastroenterology at this time. In the meantime the patient does have IgG levels are on the low side. We did repeat the levels in the coming up slowly. It is reassuring that the IgG levels are trending upwards now at 571. 05/20/2022 the patient is here for a pulmonary follow-up visit. Overall the patient has well. She stopped using the Symbicort as she did not feel like she needed it any longer. She is trying to minimize on the polypharmacy and also inhaled steroids concern her. She does have a rescue inhaler that she uses seldomly. Typically less than twice a week. She has been active and denies any new respiratory complaint. She still continues to complaint of a fullness in her throat. She does have a hiatal hernia we did talk about reflux with pharyngeal penetration. This could be attributing to that. She is scheduled tomorrow to undergo surgery for her hiatal hernia. I am hopeful that she has relief from her GI discomfort and potentially directly help her respiratory complaints as well. 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 Will plan to repeat that blood work prior to the next visit. 10/04/2022 the patient is here for a pulm onary follow-up visit. She continues to have episodes of coughing and also asthma exacerbations. She is concerned about her frequent exacerbations. I did review all the blood work and results with her. 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 In addition to that she has hypogammaglobulinemia that we cancer immune system resulting in longer and more recurrent infections. The patient has a inhaler Symbicort and also a short-acting beta agonist although she is confused on how to use it. Therefore I re-educated her about th e Symbicort in addition to her rescue inhaler. We also talked about a peak flow to try to monitor closely her airway resistance in order for her to have a game plan of how to better medicate herself and does to a shins. The patient also is complaining of difficulty breathing in. There is some degree of air trapping on examination. We talked about some techniques to help with her air trapping as well. In part will be also using inhalers to help with that air trapping. The patient does have we can immune system. She has a low IgG level although is only mild low. The patient does not need further therapies at this time. However, we should recheck the blood work in the near future in order to re- evaluate those levels. 04/07/2023 the patient is here for pulmon faisal follow-up visit. She is doing well from a respiratory status. She has not required her short-acting beta agonist. More recently now going to the fall she is developing a slight increasing chest tightness but has not required any inhaler. She continues uses Symbicort regularly. The patient also had blood work back in the spring 2022 demonstrating interval improvement in her immune status. She did have a tough winter. Therefore this year it did recommend she still gets the RSV vaccine will give her the Prevnar 20 vaccine today and she can always get the flu shot closer to April. The patient will call if any issues arise otherwise will follow-up in the spring. [facility] Medical History Asthma Bronchitis Diaphragmatic hernia with obstruction, without gangrene GERD (gastroesophageal reflux disease) History of cervical cancer History of COVID-19 (~06/2020) Hypogammaglobulinemia OCD (obsessive compulsive disorder) Osteopenia Tubular adenoma of colon (~2010) Surgical History History of appendectomy History of cholecystectomy History of colonoscopy History of esophagogastroduodenoscopy (EGD) History of extraction of renal calculus History of hysterectomy History of removal of laparoscopic gastric banding device Family History Father Colon cancer Paternal Uncle Colon cancer Sister Colon cancer Family/Other Colon cancer Mother Heart disease HTN (hypertension) Social History Patient Tobacco Use Status: Former Tobacco user Quit Date: 1980 Review of Systems Const Denies weight loss Eyes Denies itchy eyes ENT Denies change in voice, Denies dysphagia, Reports sore throat and Reports throat swelling Card Reports dyspnea Resp Denies chest congestion, Reports cough, Reports dyspnea and Denies wheezing GI Denies dysphagia and Denies heartburn Skin/Breast Denies lesions Neuro Reports no additional complaints Ethan/Lymph Reports as per HPI Aller/Immun Denies urticaria, Denies itchy eyes, Reports throat swelling and Denies wheezing Physical Exam Vital Signs: Last Vital Signs Pulse 67 04/07/23 11:24 Pulse Ox 96 04/07/23 11:24 Oxygen Delivery Method Room Air 04/07/23 11:24 BMI result Body Mass Index 33.4 Const General: alert Neck Neck: Yes normal visual inspection, Yes full ROM and Yes no lymphadenopathy Chest Chest palpation & inspection: normal inspection of the chest Resp Auscultation: no rales, no rhonchi, no wheezes and diminished lung sounds Cardio Rate: regular rate Rhythm: regular rhythm Heart sounds: S1 normal heart sound present and S2 normal heart sound present GI Palpation (GI): Soft to palpation and nontender Auscultation: normal bowel sounds Skin General skin exam: rashes and/or lesions noted Immunizations pneumoc 20-lexus conj-dip cr(PF) 0.5 mL IM syringe Performing Provider: Joey Gomez MD Performing Location: [facility] Administered by: Lily Dawson LPN on 04/07/23 11:54 Dose Route Admin Location Dispensed Lot Number Expiration Date [employer] 0.5 mL IM Right Deltoid 0.5 mL [id number] 05/27/24 3429-4390-00 [email or web address] VIS Given Date VIS Provided VIS Publication Date 04/07/23 Single Vaccine 22 Eligibility Eligibility Date Funding Source Not [facility] Eligible 04/07/23 Private Assessment & Plan Assessment & Plan (1) Asthma: Code(s): J45.909 - Unspecified asthma, uncomplicated Qualifiers: Asthma complication type: uncomplicated Asthma persistence: persistent Asthma severity: moderate Qualified Code(s): J45.40 - Moderate persistent asthma, uncomplicated Plan: Eosinophilic asthma phenotype (2) Hiatal hernia: Comment: s/p surgical correction Code(s): K44.9 - Diaphragmatic hernia without obstruction or gangrene (3) Hypogammaglobulinemia: Code(s): D80.1 - Nonfamilial hypogammaglobulinemia Plan continue Symbicort MAIRA as needed reflux diet follow-up in 8-12 months Orders: Orders Pneumococcal 20 Immunization Today Z23 - Encounter for immunization Coding Level of Care Code Est Pt Level 4 (00902) Diagnoses Moderate persistent asthma without complication J45.40 Asthma complication type: uncomplicated Asthma persistence: persistent Asthma severity: moderate Hiatal hernia K44.9 Hypogammaglobulinemia D80.1 Time Spent (min) 17
== END 2023-04-07 11:53 | disposition home or self-care (01) ==
PROVIDERS: PCP Physician Assistant Medical; Visit Provider Hospitalist
DX: J45.40 Moderate persistent asthma, uncomplicated (principal); K44.9 Diaphragmatic hernia without obstruction or gangrene; D80.1 Nonfamilial hypogammaglobulinemia
CPT/HCPCS: 99214

== ENCOUNTER → 2023-04-07 11:12 | Outpatient (BNVA) | payer MEDICARE, SELFPAY | PROVIDERS: Visit Provider Hospitalist | DX: J45.40 Moderate persistent asthma, uncomplicated (principal); D80.1 Nonfamilial hypogammaglobulinemia; Z79.899 Other long term (current) drug therapy; Z23 Encounter for immunization | CPT/HCPCS: 90471; 90677; 99212 ==

== ENCOUNTER 2023-10-06 11:13 | Outpatient (AMB) | payer MEDICARE, SELFPAY ==
--- NOTE | 2023-10-06 11:16 | A.OFFVIS_ITS ---
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 The patient was doing very well until back in June 2020 she developed COVID 19. after that episode she has had having increasing coughing and congestion. the patient did not require hospitalization for her COVID. She recovered home. Subsequent after that he started noticing the shortness of breath and chest tightness. She was started on a short-acting beta agonist. Subsequent to that the patient also was placed on Wixela. This has been partially helpful. However she goes in to significant coughing spells with chest congestion. Sometimes she is able to cough up some mucus plugs. Her cough is moderate severity. It is not affected by the time a day. As far as exposures she denies any exposure to any fumes or toxins. She does not have any pets. Denies any mold exposures. Denied any allergies or asthma or any obstructive airway disease prior to COVID. More recently she was developing worsening shortness of breath and she called the ambulance and she was taken to [facility] where she was admitted back in April 18 Of this year. The patient did have an elevated D-dimer and subsequently had a CT scan of the chest that was personally by me. Demonstrated some degree of mosaic pattern and evidence of bronchitis. In addition to that she did have [id number] hiatal hernia. She was treated with a course of prednisone in addition to continuing with her Wixela and short-acting beta agonist. 06/25/2021 the patient is here for a pulmonary follow-up visit. Since we last spoke care symptoms have improved some. She responded well to the medical therapy. She continues to have a cough however. She also has fullness of the throat. She complains of postnasal drip. She does have a hiatal hernia and we are awaiting her barium swallow. Explained to her that this may be impacting her respiratory issues. We did review her blood work demonstrating a low IgG level concerning for immunodeficiency. Explained to her that this could result in ongoing smoldering infections. We did talk about different options. She is going to try to minimize prophylactic antibiotics. Will plan to repeat the immunoglobulin levels. However he continued to be low not on reasonable for her to consider seeing sanitation technician to further address the question of the etiology for acquired hypogammaglobulinemia. The patient. The inhaler. She did not do well with powdered inhaler as it irritated her throat. Therefore will switch over to a HFA inhaler with spacer to minimize irritation to the throat. She is to continue with the reflux diet. She is still bringing up mucus plugs. I am hoping the Symbicort will help. However, her cultures were not helpful because the sputum was contaminated with saliva. Therefore could not be run. If she continues to have chest congestion we can send additional studies. We can also consider bronchoscopy if we need the cultures. At this point the patient is doing better so will hold off on any semi-invasive procedures. 09/24/2021 the patient is here for pulmonary follow-up visit. Overall she is feeling better. She was taking the Symbicort and then she decided to stop it. After a week or so her symptoms return she went back on it. She stopped it again for the last couple weeks and she has been doing okay. She has been coughing she has been noticing some minimal shortness of breath. She is concerned about taking a medication for too long. 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 Her allergy testing was all negative. She is taking allergy medications at this time. In addition to that she still has difficulty with swallow. Feels like food is getting stuck primarily rice in her proximal esophagus. Sometimes she chokes up. In addition to that she does get reflux symptoms. 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 The patient needs to have this followed up with gastroenterology. Will making arrangements for her to see gastroenterology at this time. In the meantime the patient does have IgG levels are on the low side. We did repeat the levels in the coming up slowly. It is reassuring that the IgG levels are trending upwards now at 571. 05/20/2022 the patient is here for a pulmonary follow-up visit. Overall the patient has well. She stopped using the Symbicort as she did not feel like she needed it any longer. She is trying to minimize on the polypharmacy and also inhaled steroids concern her. She does have a rescue inhaler that she uses seldomly. Typically less than twice a week. She has been active and denies any new respiratory complaint. She still continues to complaint of a fullness in her throat. She does have a hiatal hernia we did talk about reflux with pharyngeal penetration. This could be attributing to that. She is scheduled tomorrow to undergo surgery for her hiatal hernia. I am hopeful that she has relief from her GI discomfort and potentially directly help her respiratory complaints as well. 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 Will plan to repeat that blood work prior to the next visit. 10/04/2022 the patient is here for a pulm onary follow-up visit. She continues to have episodes of coughing and also asthma exacerbations. She is concerned about her frequent exacerbations. I did review all the blood work and results with her. 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 In addition to that she has hypogammaglobulinemia that we cancer immune system resulting in longer and more recurrent infections. The patient has a inhaler Symbicort and also a short-acting beta agonist although she is confused on how to use it. Therefore I re-educated her about the Symbicort in addition to her rescue inhaler. We also talked about a peak flow to try to monitor closely her airway resistance in order for her to have a game plan of how to better medicate herself and does to a shins. The patient also is complaining of difficulty breathing in. There is some degree of air trapping on examination. We talked about some techniques to help with her air trapping as well. In part will be also using inhalers to help with that air trapping. The patient does have we can immune system. She has a low IgG level although is only mild low. The patient does not need further therapies at this time. However, we should recheck the blood work in the near future in order to re-evaluate those levels. 04/07/2023 the patient is here for pulmon faisal follow-up visit. She is doing well from a respiratory status. She has not required her short-acting beta agonist. More recently now going to the fall she is developing a slight increasing chest tightness but has not required any inhaler. She continues uses Symbicort regularly. The patient also had blood work back in the spring 2022 demonstrating interval improvement in her immune status. She did have a tough winter. Therefore this year it did recommend she still gets the RSV vaccine will give her the Prevnar 20 vaccine today and she can always get the flu shot closer to April. The patient will call if any issues arise otherwise will follow-up in the spring. 10/06/2023 the patient is here for a pulm onary follow-up visit. The patient overall has been doing well. She does complaint of some dyspnea on exertion specially when she is at the gym now. Feels like she can not take a deep breath in. Also, last week she did have a slight asthma flare-up. She started taking her Symbicort and her rescue inhaler in between. She almost call the office better symptoms started to get better and therefore she did not need any additional therapy which is reassuring. The patient does not have a nebulizer at this point she did not feel like she needs it. No recent imaging studies. Although her last chest x-ray was without any acute disease. Prior to that she had a CT scan of the chest back in 2020 demonstrating no acute lung disease. She does have a history of hypogammaglobulinemia. Her levels just been mildly low. She has not had them checked now on a couple years. Will have her have some blood work done. In the meantime also gave her some ideas as far as breathing techniques and also online pulmonary rehabilitation to help her with deep breathing exercises. I did suggest that she can use her albuterol 15 minutes before exercise to provide her with better bronchodilation and airway capacity with exercise. Patient otherwise doing good will follow-up in a year's time. If the patient develops any worsening symptoms prior to that she will call for an earlier assessment. [facility] Medical History Asthma Bronchitis Diaphragmatic hernia with obstruction, without gangrene GERD (gastroesophageal reflux disease) History of cervical cancer History of COVID-19 (~06/2020) Hypogammaglobulinemia OCD (obsessive compulsive disorder) Osteopenia Tubular adenoma of colon (~2010) Surgical History History of appendectomy History of cholecystectomy History of colonoscopy History of esophagogastroduodenoscopy (EGD) History of extraction of renal calculus History of hysterectomy History of removal of laparoscopic gastric banding device Family History Father Colon cancer Paternal Uncle Colon cancer Sister Colon cancer Family/Other Colon cancer Mother Heart disease HTN (hypertension) Social History Patient Tobacco Use Status: Former Tobacco user Quit Date: 1980 Review of Systems Const Denies weight loss Eyes Denies itchy eyes ENT Denies change in voice, Denies dysphagia, Reports sore throat and Reports throat swelling Card Reports dyspnea on exertion Resp Denies chest congestion, Reports cough, Reports dyspnea on exertion and Denies wheezing GI Denies dysphagia and Denies heartburn Skin/Breast Denies lesions Neuro Reports no additional complaints Ethan/Lymph Reports as per HPI Aller/Immun Denies urticaria, Denies itchy eyes, Reports throat swelling and Denies wheezing Physical Exam Vital Signs: Last Vital Signs Pulse 73 10/06/23 11:17 Pulse Ox 97 10/06/23 11:17 Oxygen Delivery Method Room Air 10/06/23 11:17 BMI result Body Mass Index 33.4 Const General: alert Neck Neck: Yes normal visual inspection, Yes full ROM and Yes no lymphadenopathy Chest Chest palpation & inspection: normal inspection of the chest Resp Effort & Inspection: normal respiratory effort Auscultation: clear to auscultation bilaterally, no rales, no rhonchi and no wheezes Cardio Rate: regular rate Rhythm: regular rhythm Heart sounds: S1 normal heart sound present and S2 normal heart sound present GI Palpation (GI): Soft to palpation and nontender Auscultation: normal bowel sounds Skin General skin exam: rashes and/or lesions noted Assessment & Plan Assessment & Plan (1) Asthma: Code(s): J45.909 - Unspecified asthma, uncomplicated Qualifiers: Asthma severity: moderate Asthma persistence: persistent Asthma complication type: uncomplicated Qualified Code(s): J45.40 - Moderate persistent asthma, uncomplicated Plan: Eosinophilic asthma phenotype (2) Hiatal hernia: Comment: s/p surgical correction Code(s): K44.9 - Diaphragmatic hernia without obstruction or gangrene (3) Hypogammaglobulinemia: Code(s): D80.1 - Nonfamilial hypogammaglobulinemia Plan continue Symbicort MAIRA as needed reflux diet recheck IgG levels follow-up in 8-12 months Orders: Orders Erythrocyte Sedimentation Rate Today D80.1 - Nonfamilial hypogammaglobulinemia Immunoglobulin G Subclasses Today D80.1 - Nonfamilial hypogammaglobulinemia Medications: New budesonide-formoterol 160-4.5 mcg/actuation (Symbicort) 2 puffs inhalation BID 3 ea 3RF 90 days J44.89 - Other specified chronic obstructive pulmonary disease Coding Level of Care Code Est Pt Level 4 (70785) Diagnoses Moderate persistent asthma without complication J45.40 Asthma severity: moderate Asthma persistence: persistent Asthma complication type: uncomplicated Hiatal hernia K44.9 Hypogammaglobulinemia D80.1 Time Spent (min) 17
[2023-10-06 11:17] VITALS: PULSE 73; O2SAT 97; BMI 33.4
== END 2023-10-06 11:35 | disposition home or self-care (01) ==
PROVIDERS: PCP Physician Assistant Medical; Visit Provider Hospitalist
DX: J45.40 Moderate persistent asthma, uncomplicated (principal); K44.9 Diaphragmatic hernia without obstruction or gangrene; D80.1 Nonfamilial hypogammaglobulinemia
CPT/HCPCS: 99214

== ENCOUNTER → 2023-10-06 11:13 | Outpatient (BNVA) | payer MEDICARE, SELFPAY | PROVIDERS: PCP Physician Assistant Medical; Visit Provider Hospitalist | DX: J45.40 Moderate persistent asthma, uncomplicated (principal); D80.1 Nonfamilial hypogammaglobulinemia; K44.9 Diaphragmatic hernia without obstruction or gangrene | CPT/HCPCS: 99212 ==

== ENCOUNTER 2024-09-27 10:43 | Outpatient (AMB) | payer MEDICARE, SELFPAY ==
[2024-09-27 10:47] VITALS: BP 126/64; PULSE 68; O2SAT 98; BMI 35.5
--- NOTE | 2024-09-27 10:47 | A.OFFVIS_ITS ---
Vital Signs 09/27/24 10:47 Height 4 ft 10 in Weight 169 lb 12.095 oz BMI 35.5 BP 126/64 Blood Pressure Location Rt brachial Position Sitting Pulse 68 Pulse Source Pulse Oximeter Pulse Oximetry (%) 98 Oxygen Delivery Method Room Air Intake Visit Reasons: asthma Allergies Seasonal Allergies Allergy (Mild, Verified 09/27/24 10:53) unknown HPI Comments Details: The patient is a 74-year-old woman with a known history of asthma in addition to hiatal hernia. The patient was doing very well until back in June 2020 she developed COVID 19. after that episode she has had having increasing coughing and congestion. the patient did not require hospitalization for her COVID. She recovered home. Subsequent after that he started noticing the shortness of breath and chest tightness. She was started on a short-acting beta agonist. Subsequent to that the patient also was placed on Wixela. This has been partially helpful. However she goes in to significant coughing spells with chest congestion. Sometimes she is able to cough up some mucus plugs. Her cough is moderate severity. It is not affected by the time a day. As far as exposures she denies any exposure to any fumes or toxins. She does not have any pets. Denies any mold exposures. Denied any allergies or asthma or any obstructive airway disease prior to COVID. More recently she was developing worsening shortness of breath and she called the ambulance and she was taken to [facility] where she was admitted back in April 18 Of this year. The patient did have an elevated D-dimer and subsequently had a CT scan of the chest that was personally by me. Demonstrated some degree of mosaic pattern and evidence of bronchitis. In addition to that she did have [id number] hiatal hernia. She was treated with a course of prednisone in addition to continuing with her Wixela and short-acting beta agonist. 06/25/2021 the patient is here for a pulmonary follow-up visit. Since we last spoke care symptoms have improved some. She responded well to the medical therapy. She continues to have a cough however. She also has fullness of the throat. She complains of postnasal drip. She does have a hiatal hernia and we are awaiting her barium swallow. Explained to her that this may be impacting her respiratory issues. We did review her blood work demonstrating a low IgG level concerning for immunodeficiency. Explained to her that this could result in ongoing smoldering infections. We did talk about different options. She is going to try to minimize prophylactic antibiotics. Will plan to repeat the immunoglobulin levels. However he continued to be low not on reasonable for her to consider seeing bench assembler battery to further address the question of the etiology for acquired hypogammaglobulinemia. The patient. The inhaler. She did not do well with powdered inhaler as it irritated her throat. Therefore will switch over to a HFA inhaler with spacer to minimize irritation to the throat. She is to continue with the reflux diet. She is still bringing up mucus plugs. I am hoping the Symbicort will help. However, her cultures were not helpful because the sputum was contaminated with saliva. Therefore could not be run. If she continues to have chest congestion we can send additional studies. We can also consider bronchoscopy if we need the cultures. At this point the patient is doing better so will hold off on any semi-invasive procedures. 09/24/2021 the patient is here for pulmonary follow-up visit. Overall she is feeling better. She was taking the Symbicort and then she decided to stop it. After a week or so her symptoms return she went back on it. She stopped it again for the last couple weeks and she has been doing okay. She has been coughing she has been noticing some minimal shortness of breath. She is concerned about taking a medication for too long. 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 Her allergy testing was all negative. She is taking allergy medications at this time. In addition to that she still has difficulty with swallow. Feels like food is getting stuck primarily rice in her proximal esophagus. Sometimes she chokes up. In addition to that she does get reflux symptoms. 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 The patient needs to have this followed up with gastroenterology. Will making arrangements for her to see gastroenterology at this time. In the meantime the patient does have IgG levels are on the low side. We did repeat the levels in the coming up slowly. It is reassuring that the IgG levels are trending upwards now at 571. 05/20/2022 the patient is here for a pulmonary follow-up visit. Overall the patient has well. She stopped using the Symbicort as she did not feel like she needed it any longer. She is trying to minimize on the polypharmacy and also inhaled steroids concern her. She does have a rescue inhaler that she uses seldomly. Typically less than twice a week. She has been active and denies any new respiratory complaint. She still continues to complaint of a fullness in her throat. She does have a hiatal hernia we did talk about reflux with pharyngeal penetration. This could be attributing to that. She is scheduled tomorrow to undergo surgery for her hiatal hernia. I am hopeful that she has relief from her GI discomfort and potentially directly help her respiratory complaints as well. 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 Will plan to repeat that blood work prior to the next visit. 10/04/2022 the patient is here for a pulmonary follow-up visit. She continues to have episodes of coughing and also asthma exacerbations. She is concerned about her frequent exacerbations. I did review all the blood work and results with her. 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 In addition to that she has hypogammaglobulinemia that we cancer immune system resulting in longer and more recurrent infections. The patient has a inhaler Symbicort and also a short-acting beta agonist although she is confused on how to use it. Therefore I re-educated her about the Symbicort in addition to her rescue inhaler. We also talked about a peak flow to try to monitor closely her airway resistance in order for her to have a game plan of how to better medicate herself and does to a shins. The patient also is complaining of difficulty breathing in. There is some degree of air trapping on examination. We talked about some techniques to help with her air trapping as well. In part will be also using inhalers to help with that air trapping. The patient does have we can immune system. She has a low IgG level although is only mild low. The patient does not need further therapies at this time. However, we should recheck the blood work in the near future in order to re-evaluate those levels. 04/07/2023 the patient is here for pulmonary follow-up visit. She is doing well from a respiratory status. She has not required her short-acting beta agonist. More recently now going to the fall she is developing a slight increasing chest tightness but has not required any inhaler. She continues uses Symbicort regularly. The patient also had blood work back in the spring 2022 demonstrating interval improvement in her immune status. She did have a tough winter. Therefore this year it did recommend she still gets the RSV vaccine will give her the Prevnar 20 vaccine today and she can always get the flu shot closer to April. The patient will call if any issues arise otherwise will follow-up in the spring. 10/06/2023 the patient is here for a pulmonary follow-up visit. The patient overall has been doing well. She does complaint of some dyspnea on exertion specially when she is at the gym now. Feels like she can not take a deep breath in. Also, last week she did have a slight asthma flare-up. She started taking her Symbicort and her rescue inhaler in between. She almost call the office better symptoms started to get better and therefore she did not need any additional therapy which is reassuring. The patient does not have a nebulizer at this point she did not feel like she needs it. No recent imaging studies. Although her last chest x-ray was without any acute disease. Prior to that she had a CT scan of the chest back in 2020 demonstrating no acute lung disease. She does have a history of hypogammaglobulinemia. Her levels just been mildly low. She has not had them checked now on a couple years. Will have her have some blood work done. In the meantime also gave her some ideas as far as breathing techniques and also online pulmonary rehabilitation to help her with deep breathing exercises. I did suggest that she can use her albuterol 15 minutes before exercise to provide her with better bronchodilation and airway capacity with exercise. Patient otherwise doing good will follow-up in a year's time. If the patient develops any worsening symptoms prior to that she will call for an earlier assessment. 09/27/2024 the patient is here for a pulmonary follow-up visit. She is doing very well from a respiratory status. The patient did have the flu several weeks ago. Initially she thought she would have to call to get medications. But then her symptoms start getting better after 10 days. She was having some chest congestion that cleared. She has talk back to her baseline. She did have some chest tightness and wheezing and she did use her respiratory therapy nebulizer with good response. Now she feels well. No recent imaging studies to review. The last time she had blood work she did have some slight improvement in her IgG levels but overall she is doing clinically well and therefore will have to slowly follow the laboratories. If she starts getting frequently sick and the sickness are prolonged then at that point we should recheck levels. We did talk about her vaccines. The patient is up-to-date she needs to get a Tdap. Otherwise will follow-up in a year's time. If she has any issues prior to this she will call for an earlier assessment. [facility] Medical History Asthma Bronchitis Diaphragmatic hernia with obstruction, without gangrene GERD (gastroesophageal reflux disease) History of cervical cancer History of COVID-19 (~06/2020) Hypogammaglobulinemia OCD (obsessive compulsive disorder) Osteopenia Tubular adenoma of colon (~2010) Surgical History History of appendectomy History of cholecystectomy History of colonoscopy History of esophagogastroduodenoscopy (EGD) History of extraction of renal calculus History of hysterectomy History of removal of laparoscopic gastric banding device Family History Father Colon cancer Paternal Uncle Colon cancer Sister Colon cancer Family/Other Colon cancer Mother Heart disease HTN (hypertension) Social History Patient Tobacco Use Status: Former Tobacco user Review of Systems Const Denies weight loss Eyes Denies itchy eyes ENT Denies change in voice and Denies dysphagia Card Denies dyspnea on exertion Resp Denies chest congestion, Reports cough, Denies dyspnea on exertion and Denies wheezing GI Denies dysphagia and Denies heartburn Skin/Breast Denies lesions Neuro Reports no additional complaints Ethan/Lymph Reports as per HPI Aller/Immun Denies urticaria, Denies itchy eyes and Denies wheezing Physical Exam Vital Signs: Last Vital Signs Pulse 68 09/27/24 10:47 BP 126/64 09/27/24 10:47 Pulse Ox 98 09/27/24 10:47 Oxygen Delivery Method Room Air 09/27/24 10:47 BMI result Body Mass Index 35.5 Const General: alert Neck Neck: Yes normal visual inspection, Yes full ROM and Yes no lymphadenopathy Chest Chest palpation & inspection: normal inspection of the chest Resp Effort & Inspection: normal respiratory effort Auscultation: clear to auscultation bilaterally, no rales, no rhonchi and no wheezes Cardio Rate: regular rate Rhythm: regular rhythm Heart sounds: S1 normal heart sound present and S2 normal heart sound present GI Palpation (GI): Soft to palpation and nontender Auscultation: normal bowel sounds Skin General skin exam: rashes and/or lesions noted Assessment & Plan Assessment & Plan (1) Asthma: Code(s): J45.909 - Unspecified asthma, uncomplicated Category: Medical Qualifiers: Asthma complication type: uncomplicated Asthma persistence: persistent Asthma severity: moderate Qualified Code(s): J45.40 - Moderate persistent asthma, uncomplicated Plan: Eosinophilic asthma phenotype (2) Hiatal hernia: Comment: s/p surgical correction Code(s): K44.9 - Diaphragmatic hernia without obstruction or gangrene Category: Medical (3) Hypogammaglobulinemia: Code(s): D80.1 - Nonfamilial hypogammaglobulinemia Category: Medical Plan continue Symbicort MAIRA as needed reflux diet follow-up in 12 months Coding Level of Care Code Est Pt Level 4 (69338) Diagnoses Moderate persistent asthma without complication J45.40 Asthma complication type: uncomplicated Asthma persistence: persistent Asthma severity: moderate Hiatal hernia K44.9 Hypogammaglobulinemia D80.1 Time Spent (min) 16
--- OUTSIDE RECORDS SUMMARY | 2024-09-27 12:36 | XMS_ITS | Clinical Summary ---
Author Organization [address] Address [address] [place] [address] Phone Care Team Providers Care Purchasing Internship Name Role Phone Macario Jansen Primary Care Provider [phone] Allergies No known active allergies Medications fluticasone propionate (FLONASE) 50 mcg/actuation nasal spray 2 Sprays by Each Nare route daily. 4 Active saccharomyces boulardii (FLORASTOR) 250 mg capsule Take 1 capsule (250 mg total) by mouth 1 (one) time each day. 4 Active cholecalcifero l (VITAMIN D-3) 50 mcg (2,000 unit) tablet Take 1 tablet (2,000 Units total) by mouth 1 (one) time each day. 4 Active niacin 50 mg tablet Take 1 tablet (50 mg total) by mouth 1 (one) time each day with breakfast. 4 Active vitamin E, dl,tocopheryl acet, (vitamin E, dl, acetate,) 45 mg (100 unit) capsule Take 1 capsule (100 Units total) by mouth 1 (one) time each day. 4 Active cyanocobalamin (VITAMIN B-12) 100 mcg tablet Take 1 tablet (100 mcg total) by mouth 1 (one) time each day. 4 Active budesonide-for moteroL (SYMBICORT) 160-4.5 mcg/actuation inhaler Inhale 2 puffs by mouth 2 (two) times a day. 3 Active albuterol HFA (PROAIR HFA ; PROVENTIL HFA ; VENTOLIN HFA) 90 mcg/actuation inhaler Inhale 2 puffs by mouth every 4 (four) hours if needed for wheezing (coughing). 7 Active omeprazole (PriLOSEC) [address] capsule Take 1 capsule (40 mg total) by mouth 1 (one) time each day. 90 capsule 1 5 Active FLUoxetine (PROzac) 40 mg capsule TAKE 2 CAPSULES BY MOUTH DAILY 180 capsule 3 5 Active FLUoxetine (PROzac) 40 mg capsule Take 1 capsule (40 mg total) by mouth 1 (one) time each day. 4 025 Discontinued Active Problems Problem Noted Date Diagnosed Date Anxiety 02/23/2024 MCI (mild cognitive impairment) 08/22/2023 Moderate persistent asthma 02/19/2023 Vitamin B12 deficiency 10/07/2022 Hiatal hernia 06/03/2022 Overview (06/18/2024): Last Assessment & Plan: Ms. Mercado is a 71-year-old female who had a robotic laparoscopic paraesophageal hernia repair with mesh on May 21, 2022. ?? Patient appears to be healing quite well from surgery. Her allergic reaction around all incisions has cleared completely. Surgical glue was added to her allergy list. ?? Patient has been tolerating her mechanical soft diet without issues. She has also been swallowing her smaller and medium sized pills without any issue. Denies any dysphagia, odynophagia, regurgitation of food. ?? Her barium swallow study today shows mild narrowing of the gastroesophageal junction which has significantly improved compared to previous study about 1 month ago. Barium passes readily through this area into the stomach, however there was a brief hold-up of a 13 mm barium tablet at the GE junction which was cleared with additional swallows of water. There is also noted moderate esophageal dysmotility. ?? At this point I will increase the patient's diet to a regular diet. She may resume carbonated beverages and the use of straws. She is educated to take any additions to her diet slow which includes small bites and smaller portions more frequently throughout the day. ?? She may resume all of her pills whole, but is educated to take 1 at a time to make sure it passes without any issues. Patient may follow-up with our office on an as-needed basis. She can call us with any questions or concerns and we will be happy to see her in the future. Incontinence of feces 10/16/2020 Prediabetes 03/14/2020 Obsessive compulsive disorder 01/20/2017 Osteopenia 08/03/2015 Major depressive disorder, r ecurrent episode, in full remission 06/01/2012 Benign neoplasm of colon 03/26/2011 Overview (06/18/2024): 03/07 CN 5 mm cecal tubular adenoma. Negative colonoscopy 08/05/2016, no colon cancer screening needed for 5 years. Vitamin D deficiency 10/10/2009 Kidney stone 08/31/2008 Overview (06/18/2024): Calcium oxalate stone Radiculitis, lumbosacral 08/28/2007 Herniated lumbar intervertebral disc 08/28/2007 Lumbago 08/28/2007 Obesity 07/03/2005 Encounters Date Type Department Care Team Description 08/10/2024 10:30 AM EST Office Visit Adult Medicine [address] [phone] Macario Jansen PA Prediabetes (Primary Dx); Vitamin B12 deficiency; Obesity without serious comorbidity, unspecified class, unspecified obesity type; Vitamin D deficiency; MCI (mild cognitive impairment); Obsessive-compulsive disorder, unspecified type; Major depressive disorder, recurrent episode, in full remission (CMS/HCC); Anxiety; Moderate persistent asthma without complication; Osteopenia, unspecified location from Last 3 Months Immunizations Name Administration Dates Next Due Pneumococcal conjugate 13 va lent (Prevnar 13, PCV13) 2mo and older 06/26/2015 Pneumococcal conjugate 20 va lent (Prevnar 20, PCV 20) 2mo and older 04/07/2023 Pneumococcal polysaccharide 23 valent (Pneumovax 23) 2yo and older 11/13/2016 TD, Adsorbed, Preservative Free 02/25/2013,04/02 Zoster Live 04/12/2011 Surgical History Surgery Date Site/Laterality Comments CHOLECYSTECTOMY PROCEDURE: HISTORICAL CHOLECYSTECTOMY OTHER SURGICAL HISTORY PROCEDURE: MA TOTAL ABDOMINAL HYSTERECT W/WO RMVL TUBE OVARY; COMMENT: cervical cancer OTHER SURGICAL HISTORY PROCEDURE: HISTORY OTHER; COMMENT: lap band COLONOSCOPY 1999 PROCEDURE: HISTORICAL COLONOSCOPY; COMMENT: negative COLONOSCOPY 2005 PROCEDURE: HISTORICAL COLONOSCOPY; COMMENT: Slitzky; negative COLONOSCOPY 03/26/2011 PROCEDURE: HISTORICAL COLONOSCOPY; COMMENT: 5 mm cecal polyp: tubular adenoma. APPENDECTOMY PROCEDURE: HISTORICAL APPENDECTOMY LAPAROSCOPIC GASTRIC BANDING 2014 PROCEDURE: LAP ADJUSTABLE GASTRIC BAND; COMMENT: removed 2015 BREAST BIOPSY 1986 Right PROCEDURE: BX BREAST; PERC NEEDLE CORE W/IMAG GUID; COMMENT: bx neg COLONOSCOPY 2016 PROCEDURE: HISTORICAL COLONOSCOPY; COMMENT: no polyps OTHER SURGICAL HISTORY 03/27/2022 PROCEDURE: UPPER GI ENDOSCOPY, REMOVE LESION; COMMENT: Upper esophageal stricture with dilation - dr. muse OTHER SURGICAL HISTORY 05/21/2022 PROCEDURE: MA LAPT RPR PARAESOPH HIATAL HERNIA W/MESH; COMMENT: dr. awilda Liu paraesophageal hernia repair with mesh HERNIA REPAIR 05/21/2022 PROCEDURE: HISTORICAL HERNIA REPAIR/UMB; COMMENT: Paraesophageal Hernia Repair Medical History Medical History Date Comments Depressive disorder, not els ewhere classified DX:Depressive disorder, not elsewhere classified Obesity, unspecified DX:Obesity, unspecified Kidney stone 08/31/2008 DX:Kidney stone; COMMENT: Calcium oxalate stone Historical Medical DX 08/31/2008 DX:Family history of cancer of the gastrointestinal tract; COMMENT: Sister diagnosed at age 54 Father diagnosed at age 68 Benign neoplasm of colon 03/26/2011 DX:Ravi gn neoplasm of colon Depression 04/12/2011 DX:Depression Other specified personal his tory presenting hazards to health(V15.89) 1983 DX:Other specified personal history presenting hazards to health(V15.89); COMMENT: cervical ca Family History Medical History Relation Name Comments Colon cancer Father at age 70 Heart failure Mother Stroke Mother Colon cancer Other paternal first cousin Colon cancer Uncle paternal uncle Blindness Neg Hx Breast cancer Neg Hx Cataracts Neg Hx Glaucoma Neg Hx Macular degeneration Neg Hx Strabismus Neg Hx Relation Name Status Comments Brother (Age 70) lung cance r Father colon cancer Mother dementia Other Sister 1 cer palsy Sister 2 (Age 60) colon canc er Sister 3 Alive Uncle Social History Tobacco Use Types Packs/Day Years Used Date Smoking Tobacco: Former Cigarettes 0.5 15 0 07/28/1965 - 07/28/1980 Smokeless Tobacco: Former Tobacco Cessation:Counseling Given: Not Answered Alcohol Use Standard Drinks/Week Comments Yes 0 (1 standard drink = 0.6 oz pur e alcohol) Comments Unknown Sex and Gender Information Value Date Recorded Sex Assigned at Not on file Legal Sex Female 5:15 PM EST Gender Identity Not on file Sexual Orientation Not on file Obstetrics History Last Filed Vital Signs Vital Sign Reading Time Taken Comments Blood Pressure 137/73 08/10/2024 10:46 AM EST Pulse 53 08/10/2024 10:46 AM EST Temperature 36.5 ??C (97.7 ??F) 08/10/2024 10:[address] Respiratory Rate 15 08/10/2024 10:46 AM EST Oxygen Saturation - - Inhaled Oxygen Concentration - - Weight 74.2 kg (163 lb 9.6 oz) 08/10/2024 10:46 AM EST Height 147.3 cm (4' 10 ) 08/10/2024 10:46 AM EST Body Mass Index 34.19 08/10/2024 10:46 AM EST Plan of Treatment Upcoming Encounters Date Type Department Care Team (Late st Contact Info) Description 02/28/2025 12:00 PM EDT Office Visit [facility] - [address] [phone] Macario Jansen PA [address] [place] [id number] 03/23/2025 11:30 AM EDT Appointment Radiology Department - [address] [phone] Health Maintenance Due Date Last Done Comments Zoster Vaccines (2 of 3) 06/07/2011 04/12/2011 Colorectal Cancer Screening: Stool Based Tests (FOBT/FIT) 07/06/2022 Depression Screening 07/06/2022 Falls Risk Assessment 07/06/2022 Medicare Annual Wellness Visit 07/06/2022 Social Influencers of Health Screening 07/06/2022 COVID-19 Vaccine ( season) 2024 12/03/2020, 11/12/2020 RSV Immunization Patients 60+ Years Old (1 - 1-dose 75+ series) 2024 Cholesterol Screening (Lipid Panel) 02/22/2029 02/23/2024, 02/23/2024 Osteoporosis Screening (Bone Density Screening) 11/20/2033 11/21/2023, 11/21/2023, 03/05/2021, Additional history exists DTaP,Tdap,and Td Vaccines Discontinued 02/25/2013, 12/2000 Hepatitis C Screening Completed 06/29/2015 Influenza Vaccine Discontinued 07/03/2021, , 05/17/2019 Pneumococcal Vaccine: 50+ Years Completed 04/07/2023, 11/13/2016, 06/26/2015 Breast Cancer Screening Discontinued 03/17/20 24, 03/17/2024, 03/10/2023, Additional history exists HIB Vaccines Aged Out No longer eligi ble based on patient's age to complete this topic HPV Vaccines Aged Out No longer eligi ble based on patient's age to complete this topic Hepatitis A Vaccines Aged Out No long er eligible based on patient's age to complete this topic Hepatitis B Vaccines Aged Out No long er eligible based on patient's age to complete this topic IPV Vaccines Aged Out No longer eligi ble based on patient's age to complete this topic MMR Vaccines Aged Out No longer eligi ble based on patient's age to complete this topic Meningococcal ACWY Vaccine Aged Out N o longer eligible based on patient's age to complete this topic Meningococcal B Vacine Aged Out No lo nger eligible based on patient's age to complete this topic RSV Immunization Patients Under 20 months Aged Out No longer eligible based on patient's age to complete this topic Varicella Vaccines Aged Out No longer eligible based on patient's age to complete this topic Procedures Procedure Name Priority Date/Time Associated Diagnosis Comments SCREENING MAMMOGRAPHY BI 2-VIEW BREAST INC CAD Routine 03/17/2024 10:43 AM EDT Encounter for screening mammogram for malignant neoplasm of breast LIPID PANEL Routine 02/23/2024 DXA BONE DENSITY STUDY 1+ SITS AXIAL SKEL Routine 11/21/2023 10:42 AM EDT Vitamin D deficiency, unspecified Other specified disorders of bone density and structure, unspecified site HM HEPATITIS C SCREENING Routine 06/29/2015 from Last 3 Months or Most Recently Relevant to Health Maintenance Results * SCREENING MAMMOGRAPHY BI 2-VIEW BREAST INC CAD (03/17/2024 10:43 AM EDT) Anatomical Region Laterality Modality Radiographic Yamile ging 03/10/2023 10:2 6 AM EDT Narrative 03/17/2024 12:25 PM EDT This is a summary report. The complete report is available in the patient's medical record. If you cannot access the medical record, please contact the sending organization for a detailed fax or copy. Full field digital screening tomosynthesis mammography, reviewed with CAD and compared to previous. The breasts are composed of fatty and fibroglandular tissue. ??No suspicious mass, architectural distortion or suspicious calcifications are identified. IMPRESSION: : No mammographic evidence of malignancy. BIRADS 1-Negative; N. 5 year breast cancer risk assessment 2.1 % Lifetime breast cancer risk assessment 4.7 % Breast cancer risk category Low (<15%) Procedure Note Mik Atkinson MD - 05/12/2024 This is a summary report. The complete report is available in thepatient's medical record. If you cannot access the medical record, pleasecontact the sending organization for a detailed fax or copy. Full field digital screening tomosynthesis mammography, reviewed with CADand compared to previous. The breasts are composed of fatty andfibroglandular tissue. No suspicious mass, architectural distortion orsuspicious calcifications are identified. IMPRESSION: : No mammographic evidence of malignancy. BIRADS 1-Negative; N. 5 year breast cancer risk assessment 2.1 % Lifetime breast cancer risk assessment 4.7 % Breast cancer risk category Low (<15%) Macario OLSON IMG XR PROCEDURES Final R esult * (ABNORMAL) Lipid panel (02/23/2024) LDL/HDL Ratio 3 0 - 4 Triglycerides 129 0 - 150 mg/dL Cholesterol 225(A) 0 - 200 mg/dL HDL 66 >=40 mg/dL LDL Cholesterol 134(A) 0 - 100 mg/dL Blood Venous blood specimen / Unknown us Historical Provider LAB BLOOD ORDERABLES Jenifer l Result * DXA BONE DENSITY STUDY 1+ SUSIE BRAUN (11/21/2023 10:42 AM EDT) Anatomical Region Laterality Modality Bone Densitometr y 08/22/2023 12:4 9 PM EST Narrative 11/21/2023 12:48 PM EDT BONE DENSITY ? Lumbar Spine T-score is -1.5 ?? (SD relative to 20-29 y/o adult) Z-score is +0.9 ??(SD relative to age matched peers) This is consistent with osteopenia by criteria defined by the WHO. Left Hip T-score is -2.4 Z-score is -0.3 This is consistent with osteopenia by criteria defined by the WHO. Comparison exam(s): significant decrease in bone density of ??hip when compared to most recent bone density examination ?? Confidence level is +/-95%. Impression: Based on the World Health Organization criteria, Selam Mercado should be classified as having osteopenia. This patient has a 14% risk of major osteoporotic fracture and a 3.8% risk of hip fracture over the next 10 years. (World Health Organization Fracture Risk Assessment) [facility] Department of Internal Medicine recommends using National Osteoporosis Foundation (NOF) guidelines in treatment decisions related to osteoporosis. NOF guidelines suggest considering treatment for postmenopausal women and men aged 50 or older presenting with the following: History of hip or vertebral fracture. T-score less than or equal to -2.5 (DXA) at the femoral neck, total hip, or spine, after appropriate evaluation to exclude secondary causes. Low bone mass (T-score between -1.0 and -2.5 at the femoral neck or spine) AND a 10-year probability of a hip fracture greater than or equal to 3% OR a 10-year probability of a major osteoporosis-related fracture greater than or equal to 20% based on the [place]-adapted WHO algorithm Please note that all treatment decisions require clinical judgment and consideration of individual patient factors, including patient preferences, co-morbidities, previous drug use, risk factors not captured in the FRAX model (e.g., frailty, falls, vitamin D deficiency, increased bone turnover, interval significant decline in bone density) and possible under- or over-estimation of fracture risk by FRAX. Procedure Note Raquel Humphreys MD - 03/15/2024 BONE DENSITY Lumbar Spine T-score is -1.5 (SD relative to 20-29 y/o adult) Z-score is +0.9 (SD relative to age matched peers) This is consistent with osteopenia by criteria defined by the WHO. Left Hip T-score is -2.4 Z-score is -0.3 This is consistent with osteopenia by criteria defined by the WHO. Comparison exam(s): significant decrease in bone density of hip whencompared to most recent bone density examination Confidence level is +/-95%. Impression: Based on the World Health Organization criteria, Selam Mercado should beclassified as having osteopenia. This patient has a 14% risk of majorosteoporotic fracture and a 3.8% risk of hip fracture over the next 10years. (World Health Organization Fracture Risk Assessment) [facility] Department of Internal Medicine recommendsusing National Osteoporosis Foundation (NOF) guidelines in treatmentdecisions related to osteoporosis. NOF guidelines suggest consideringtreatment for postmenopausal women and men aged 50 or older presentingwith the following: History of hip or vertebral fracture. T-score less than or equal to -2.5 (DXA) at the femoral neck, total hip,or spine, after appropriate evaluation to exclude secondary causes. Low bone mass (T-score between -1.0 and -2.5 at the femoral neck or spine)AND a 10-year probability of a hip fracture greater than or equal to 3% ORa 10-year probability of a major osteoporosis-related fracture greaterthan or equal to 20% based on the [place]-adapted WHO algorithm Please note that all treatment decisions require clinical judgment andconsideration of individual patient factors, including patientpreferences, co-morbidities, previous drug use, risk factors not capturedin the FRAX model (e.g., frailty, falls, vitamin D deficiency, increasedbone turnover, interval significant decline in bone density) and possibleunder- or over-estimation of fracture risk by FRAX. Macario OLSON IMG DXA PROCEDURES Final Result * Hepatitis C Screening (06/29/2015) Hepatitis C Screening abstracted Historical Provider MD HEALTH MAINTENANCE Final Result from Last 3 Months or Most Recently Relevant to Health Maintenance Insurance [employer] [place] [employer] Advance Directives Documents on File Type Date Recorded Patient Freelance Recruiter Expl anation Health Care Decision (hx) 05/21/2022 HE ALTH CARE PROXY Health Care Decision (hx) 05/21/2022 HE ALTH CARE PROXY Health Care Decision (hx) 05/21/2022 HE ALTH CARE PROXY Care Teams Purchasing Internship Relationship Specialty Start Date End Date Macario Jansen PA [address] [place] [id number] PCP - General Internal Medicine 08/10/24
== END 2024-09-27 11:14 | disposition home or self-care (01) ==
PROVIDERS: PCP Physician Assistant Medical; Visit Provider Hospitalist
DX: J45.40 Moderate persistent asthma, uncomplicated (principal); K44.9 Diaphragmatic hernia without obstruction or gangrene; D80.1 Nonfamilial hypogammaglobulinemia
CPT/HCPCS: 99214

== ENCOUNTER → 2024-09-27 10:43 | Outpatient (BNVA) | payer MEDICARE, SELFPAY | PROVIDERS: PCP Physician Assistant Medical; Visit Provider Hospitalist | DX: J45.40 Moderate persistent asthma, uncomplicated (principal); K44.9 Diaphragmatic hernia without obstruction or gangrene; D80.1 Nonfamilial hypogammaglobulinemia | CPT/HCPCS: 99212 ==